=== PATIENT | male | born 1965 | race Caucasian/White ===

== ENCOUNTER 2023-03-28 13:25 | Observation (INO) | payer MEDICAID, SELFPAY ==
[2023-03-28] VITALS (26 sets, daily range): BP systolic 126–178; BP diastolic 85–116; PULSE 65–71; RESP 16–24; TEMP 36.6–37.2; O2SAT 95–100; BMI 23.7; BMI 28.5
--- NOTE | 2023-03-28 13:33 | CT_ITS ---
The [address] [address] Patient Name: CHARLES ROBERSON MRN: [id number] date: 1965 Sex: M Assigned Patient Location: ER Current Patient Location: Accession/Order Number: [id number] Exam Date: 03/28/2023 15:02 Report Date: 03/28/2023 15:35 At the request of: ALFREDA ELLISON Procedure: CT cervical spine wo con TITLE: CT head/brain wo con, CT cervical spine wo con COMPARISON: None. CLINICAL HISTORY: Fall. Headache. Dizziness TECHNIQUE: 3 mm axial images were obtained of the brain and cervical spine without contrast. Multiplanar reconstructions created Automated exposure control was utilized. Dose reduction techniques were achieved by using automated exposure control and/or adjustment of mA and/or kV according to patient size and/or use of iterative reconstruction technique. FINDINGS: Head CT: There is no mass, mass effect, parenchymal hemorrhage, nor subarachnoid hemorrhage. Small hypodensity in the basal ganglia likely remote lacunar infarcts. The extra-axial and extracranial structures appear normal. There is no hydrocephalus. The skeletal structures are intact.. Cervical spine CT: Osteopenia. Dextroconvexity. No listhesis nor vertebral body height loss. Anterior fusion operative changes C4-C6. Anterior plate, vertebral body screw, and interbody fusion material No displaced fracture. Posterior osteophyte and disc formation with uncovertebral hypertrophy results in moderate central stenoses C3-4-C6-7. 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 NO ACUTE INTRACRANIAL FINDINGS BY HEAD CT WITHOUT CONTRAST. PREVIOUS ANTERIOR FUSION OPERATIVE CHANGES C4-C6 MODERATE DEGENERATIVE CHANGE WITHOUT ACUTE CT FINDINGS Electronically authenticated by: KHURRAM CARRASCO Date: 03/28/2023 15:35
--- NOTE | 2023-03-28 13:33 | CT_ITS ---
The [address] [address] Patient Name: CHARLES ROBERSON MRN: [id number] date: 1965 Sex: M Assigned Patient Location: ER Current Patient Location: Accession/Order Number: [id number] Exam Date: 03/28/2023 15:02 Report Date: 03/28/2023 15:35 At the request of: ALFREDA ELLISON Procedure: CT head/brain wo con TITLE: CT head/brain wo con, CT cervical spine wo con COMPARISON: None. CLINICAL HISTORY: Fall. Headache. Dizziness TECHNIQUE: 3 mm axial images were obtained of the brain and cervical spine without contrast. Multiplanar reconstructions created Automated exposure control was utilized. Dose reduction techniques were achieved by using automated exposure control and/or adjustment of mA and/or kV according to patient size and/or use of iterative reconstruction technique. FINDINGS: Head CT: There is no mass, mass effect, parenchymal hemorrhage, nor subarachnoid hemorrhage. Small hypodensity in the basal ganglia likely remote lacunar infarcts. The extra-axial and extracranial structures appear normal. There is no hydrocephalus. The skeletal structures are intact.. Cervical spine CT: Osteopenia. Dextroconvexity. No listhesis nor vertebral body height loss. Anterior fusion operative changes C4-C6. Anterior plate, vertebral body screw, and interbody fusion material No displaced fracture. Posterior osteophyte and disc formation with uncovertebral hypertrophy results in moderate central stenoses C3-4-C6-7. 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 NO ACUTE INTRACRANIAL FINDINGS BY HEAD CT WITHOUT CONTRAST. PREVIOUS ANTERIOR FUSION OPERATIVE CHANGES C4-C6 MODERATE DEGENERATIVE CHANGE WITHOUT ACUTE CT FINDINGS Electronically authenticated by: KHURRAM CARRASCO Date: 03/28/2023 15:35
--- NOTE | 2023-03-28 13:35 | XR_ITS ---
The [address] [address] Patient Name: CHARLES ROBERSON MRN: [id number] date: 1965 Sex: M Assigned Patient Location: ER Current Patient Location: ER Accession/Order Number: [id number] Exam Date: 03/28/2023 15:08 Report Date: 03/28/2023 15:31 At the request of: ALFREDA ELLISON Procedure: XR chest 1V PROCEDURE: XR chest 1V DATE: 03/28/2023 2:08 PM CDT COMPARISONS: 10/30/2022 CLINICAL INDICATION: 57 years Male s/p fall FINDINGS: The heart is slightly prominent and stable. Poststernotomy changes again identified. A loop recorder is again identified. The lungs are clear. There is no evidence of pleural effusion or pneumothorax. XR/XR chest 1V IMPRESSION: Stable poststernotomy chest. Electronically authenticated by: RAJ SHIPMAN Date: 03/28/2023 15:31
--- NOTE | 2023-03-28 13:37 | ED.GENADUL1 ---
HPI - General Adult General Chief complaint: Headache Stated complaint: HEAD/NECK PAIN Time Seen by Provider: 03/28/23 13:32 Source: patient Source information: EMS History of Present Illness HPI narrative: patient is a 57-year-old male, presents to Emergency Room via EMS for evaluation of severe neck and head pain. ( pt is on plavix, but states he didn't hit his head. ) Patient states she has a history of migraine headaches and prior history of cervical neck fusion. Patient states yesterday he was walking down his steps around 1 PM and slipped landing on his buttock but jerked his head backwards. Patient states he felt a pop in his neeck. Symptoms have been gradually ramping uup. Intermittent numbness and tingling in the upper extremities. He denies any chest pain or shortness of breath. Patient notes current head pain is 9/10 feels like my eyeballs are getting pushed out of my head. Patient notes severe pain radiating from his neck to the posterior scalp. Similar symptoms to previous migrainous episodes but intensity is much worse than prior episodes. Patient has a c-collar on the EMS. patient has notable light and noise sensitivity. Onset (ago): day(s) (1) Location: Reports head and neck Quality: Denies burning Pain Consistency: Denies constant Relieving factors: Denies none Exacerbating factors: Denies none Treatments prior to arrival: Reports none Related Data Home Medications Medication Instructions Recorded Confirmed albuterol sulfate 90 mcg/actuation 2 puff inhalation Q6H PRN 03/28/23 03/28/23 aerosol inhaler (Ventolin HFA) shortness of breath or wheezing amitriptyline 50 mg tablet 50 mg PO DAILY 03/28/23 03/28/23 aspirin 81 mg tablet,delayed 81 mg PO DAILY 03/28/23 03/28/23 release atorvastatin 80 mg tablet 80 mg PO DAILY 03/28/23 03/28/23 baclofen 10 mg tablet 10 mg PO DAILY 03/28/23 03/28/23 clopidogrel 75 mg tablet 75 mg PO DAILY 03/28/23 03/28/23 metoprolol succinate 50 mg 50 mg PO DAILY 03/28/23 03/28/23 tablet,extended release 24 hr sacubitril 24 mg-valsartan 26 mg 1 tab PO DAILY 03/28/23 03/28/23 tablet (Entresto) Allergies Allergy/AdvReac Type Severity Reaction Status Date / Time nka Allergy Mild Uncoded 03/28/23 18:16 Review of Systems ROS Constitutional Denies: fever or chills Eyes Denies: change in vision Ears, nose, mouth, and throat Denies: throat pain or neck pain Cardiovascular Denies: chest pain or palpitations Respiratory Denies: shortness of breath or cough Gastrointestinal Reports: nausea; Denies: abdominal pain Musculoskeletal Reports: neck pain; Denies: back pain Integumentary/Breast Denies: rash or itching Neurological Reports: headache and numbness in extremities (upper extremities intermittently numb and tingly, no focal distribution) Psychiatric Denies: anxiety Endocrine Denies: excessive urination Hematologic/Lymphatic Denies: easy bruising Allergic/Immunologic Denies: hives [facility] Medical History (Updated 03/28/23 @ 17:02 by Deena Wise) Surgical History (Updated 03/28/23 @ 17:02 by Deena Wise) Social History (Updated 03/28/23 @ 17:05 by Deena Wise) Smoking status: Current every day smoker Non-prescribed substance use: former substance user Non-prescribed substance use details: cocaine, meth Previous occupational history: [employer] Known occupational exposures/hazards: No Highest level of school completed/degree received: GED or equivalent Little interest or pleasure in doing things: not at all Feeling down, depressed, or hopeless: not at all Feel stressed/tense/nervous/anxious/difficulty sleeping: only a little Do you think of yourself as: straight/heterosexual Gender Identity: male Exam Narrative Exam Narrative: Nurses notes and vital signs reviewed and patient is not hypoxic. General: The patient appears uncomfortable, grimacing with pain. Covering his eyes from the light.sitting up and conversing without difficulty. Skin: Warm, dry, no pallor noted.no evidence of rash Head: Normocephalic, atraumatic Neck:positive spasm cervical spine, remote surgical scar, c-collar left in place Eye: Pupils are equal, round and reactive to light, EOMI Ears, Nose, Mouth, and Throat: TM are clear, normal light reflex, oral mucosa is moist, no posterior oropharynx erythema or hypertrophy, uvula is mid-line Cardiovascular: Regular Rate and Rhythm Respiratory: Patient is in no distress, no accessory muscle use, lungs are clear to auscultation, no wheezing, rales or rhonchi. 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 No focal deficit. Patient notes intermittent paresthesias bilateral upper extremity but no focal radicular pattern specified. GI: Normal bowel sounds, no tenderness to palpation, no masses appreciated. No rebound, guarding, or rigidity noted. Neurological: A&O x4, as of confusion, no focal neurological radiculopathy. Psychiatric: Cooperative Constitutional Vital Signs, click to edit/add: Last Vital Signs Temp 98 F 03/28/23 17:06 Pulse 71 03/28/23 17:06 Resp 16 03/28/23 17:06 BP 134/95 H 03/28/23 17:06 Pulse Ox 95 03/28/23 17:06 O2 Del Method Room Air 03/28/23 17:06 O2 Flow Rate 15 03/28/23 15:39 Course Vital Signs Vital signs: Vital Signs Temperature 98.6 F 03/28/23 13:33 Respiratory Rate 24 03/28/23 13:33 Blood Pressure 129/99 H 03/28/23 13:33 Pulse Oximetry 100 03/28/23 13:33 Temperature 98 F 03/28/23 17:06 Pulse Rate 71 03/28/23 17:06 Respiratory Rate 16 03/28/23 17:06 Blood Pressure 134/95 H 03/28/23 17:06 Pulse Oximetry 95 03/28/23 17:06 Oxygen Delivery Method Room Air 03/28/23 17:06 Oxygen Delivery Flow Rate 15 03/28/23 15:39 Medical Decision Making MDM Narrative Medical decision making narrative: patient presents with severe headache, 9/10 and neck pain, concerned with feeling a pop in his neck after falling on basement steps. Patient is on Plavix. Recommend CT of the head and neck. Patient left in c-collar, given morphine, Norflex, 40 mg IV Solu-Medrol. Patient reports pain to right occipital side of his scalp radiating from the neck up over his head, worse than previous migraines. Upon returning from the CT scan patient was reevaluated. Given 5 mg IV Valium, Benadryl 5 mg and Reglan. 10 mg. patient also placed on bedside oxygen 15 L/m. Patient notes improvement in pain doown to a 7/10. Cervical spine brace was removed following stabe CT report: Pt given Magnesium 2g IV over 20 mins. to reports migraine still present, we discussed his history, case reviewed with Dr. melendrez regarding presentation, symptoms and studies. He is agreeable to admit the patient for observation given intractable migraine. @4:30pm Lab Data Lab results reviewed: Yes I reviewed the patient's lab results Labs: Lab Results 03/28/23 Range/Units 14:02 WBC 7.6 (4.0-11.0) 10^3/uL RBC 4.65 L (4.70-6.10) 10^6/uL Hgb 15.4 (14.0-18.0) g/dL Hct 44.9 (42.0-54.0) % MCV 96.6 H (80.0-94.0) fL MCH 33.1 (25.9-34.0) pg MCHC 34.3 (29.9-35.2) g/dL RDW 13.0 (11.0-15.0) % Plt Count 161 (150-450) 10^3/uL MPV 9.4 L (9.5-13.5) fL Neut % (Auto) 76.9 H (43.0-75.0) % Lymph % (Auto) 15.9 L (20.5-60.0) % Jessamine % (Auto) 5.8 (1.7-12.0) % Eos % (Auto) 0.7 L (0.9-7.0) % Baso % (Auto) 0.4 (0.2-2.0) % Neut # (Auto) 5.9 (1.4-6.5) 10^3/uL Lymph # (Auto) 1.2 (1.2-3.8) 10^3/uL Jessamine # (Auto) 0.4 (0.3-0.8) 10^3/uL Eos # (Auto) 0.1 (0.0-0.7) 10^3/uL Baso # (Auto) 0.0 (0.0-0.1) 10^3/uL Abs Immat Gran (auto) 0.02 (0.00-0.03) 10^3/uL Imm/Tot Granulo (auto) 0.3 (0.0-0.5) % ESR 17 (<=20) mm/hr PT 10.7 (9.0-11.6) sec INR 1.01 APTT 26.7 (22.3-36.2) sec Sodium 136 (136-145) mmol/L Potassium 3.7 (3.5-5.1) mmol/L Chloride 100 (98-107) mmol/L Carbon Dioxide 23.7 (21.0-32.0) mmol/L Anion Gap 16.0 BUN 7.0 (7.0-18.0) mg/dL Creatinine 1.24 (0.70-1.30) mg/dL Est GFR ( Amer) >60 (>=60) Est GFR (Non-Af Amer) 60 (>=60) BUN/Creatinine Ratio 5.6 Glucose 131 H (74-106) mg/dL Calcium 9.4 (8.5-10.1) mg/dL Imaging Data CT scan - head: Radiologist's impression: At the request of: ALFREDA ELLISON Procedure: CT head/brain wo con TITLE: CT head/brain wo con, CT cervical spine wo con COMPARISON: None. CLINICAL HISTORY: Fall. Headache. Dizziness TECHNIQUE: 3 mm axial images were obtained of the brain and cervical spine without contrast. Multiplanar reconstructions created Automated exposure control was utilized. Dose reduction techniques were achieved by using automated exposure control and/or adjustment of mA and/or kV according to patient size and/or use of iterative reconstruction technique. FINDINGS: Head CT: There is no mass, mass effect, parenchymal hemorrhage, nor subarachnoid hemorrhage. Small hypodensity in the basal ganglia likely remote lacunar infarcts. The extra-axial and extracranial structures appear normal. There is no hydrocephalus. The skeletal structures are intact.. Cervical spine CT: Osteopenia. Dextroconvexity. No listhesis nor vertebral body height loss. Anterior fusion operative changes C4-C6. Anterior plate, vertebral body screw, and interbody fusion material No displaced fracture. Posterior osteophyte and disc formation with uncovertebral hypertrophy results in moderate central stenoses C3-4-C6-7. 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 NO ACUTE INTRACRANIAL FINDINGS BY HEAD CT WITHOUT CONTRAST. PREVIOUS ANTERIOR FUSION OPERATIVE CHANGES C4-C6 MODERATE DEGENERATIVE CHANGE WITHOUT ACUTE CT FINDINGS Electronically authenticated by: KHURRAM CARRASCO Date: 03/28/2023 15:35 Discharge Plan Discharge Chief Complaint: Headache Clinical Impression: Acute neck pain, Migraine Patient Disposition: Admitted as Observation Time of Disposition Decision: 16:29 Condition: Good Discharge Date/Time: 03/28/23 17:05
[2023-03-28] MEDS: ORPHENADRINE 60 MG/ 2 ML VIAL IV (13:50)
[2023-03-28] MEDS: 0.9 % SODIUM CHLORIDE 1,000 ML 999 ML IV (13:50)
[2023-03-28] MEDS: MORPHINE SULFATE 4 MG/ML VIAL IV (13:51)
[2023-03-28] MEDS: ONDANSETRON PF 4 MG/2 ML VIAL IV (13:51)
[2023-03-28] MEDS: METHYLPREDNISOLONE SOD SUCC PF 40 MG/ML VIAL IVP (13:54)
[2023-03-28 14:09] LABS: Basophils Percent Auto 0.4 % (0.2-2.0); Eosinophils Absolute Auto 0.1 10^3/uL (0.0-0.7); Eosinophils Percent Auto 0.7 % (0.9-7.0); Hematocrit 44.9 % (42.0-54.0); Hemoglobin 15.4 g/dL (14.0-18.0); Immature Granulocytes Abs Auto 0.02 10^3/uL (0.00-0.03); Immature Granulocytes Pct Auto 0.3 % (0.0-0.5); Lymphocytes Absolute Auto 1.2 10^3/uL (1.2-3.8); Lymphocytes Percent Auto 15.9 % (20.5-60.0); Mean Corpuscular HGB Conc 34.3 g/dL (29.9-35.2); Mean Corpuscular Hemoglobin 33.1 pg (25.9-34.0); Mean Corpuscular Volume 96.6 fL (80.0-94.0); Mean Platelet Volume 9.4 fL (9.5-13.5); Monocytes Absolute Auto 0.4 10^3/uL (0.3-0.8); Monocytes Percent Auto 5.8 % (1.7-12.0); Neutrophils Absolute Auto 5.9 10^3/uL (1.4-6.5); Neutrophils Percent Auto 76.9 % (43.0-75.0); Platelet Count 161 10^3/uL (150-450); Red Blood Count 4.65 10^6/uL (4.70-6.10); White Blood Count 7.6 10^3/uL (4.0-11.0)
[2023-03-28 14:20] LABS: BUN Creatinine Ratio 5.6; Calcium 9.4 mg/dL (8.5-10.1); Carbon Dioxide 23.7 mmol/L (21.0-32.0); Chloride 100 mmol/L (98-107); Estimated GFR (African America >60 (>=60); Estimated GFR (Non-African Ame 60 (>=60); Glucose 131 mg/dL (74-106); Potassium 3.7 mmol/L (3.5-5.1); Sodium 136 mmol/L (136-145)
[2023-03-28 14:33] LABS: INR 1.01; Partial Thromboplastin Time 26.7 sec (22.3-36.2); Prothrombin Time 10.7 sec (9.0-11.6)
[2023-03-28] MEDS: METOCLOPRAMIDE HCL 10 MG/2 ML VIAL IVP (15:29)
[2023-03-28] MEDS: DIPHENHYDRAMINE HCL 50 MG/ML (1ML) VIAL 25 MG IV (15:29)
[2023-03-28] MEDS: DIAZEPAM 5 MG/ML - 2 ML INJ SYRINGE IV (15:30)
--- NOTE | 2023-03-28 15:42 | PC.NURSE ---
1542 RECHECK MANUAL BP MONITOR INCORRECT AT 178/116. RECHECK MANUAL 148/86. Cristino HICKMAN RN
[2023-03-28] MEDS: KETOROLAC TROMETHAMINE 30 MG/ML VIAL IVP (16:01)
[2023-03-28] MEDS: MAGNESIUM SULFATE/D5W 1 GM/100 ML PIGGYBACK IV (16:27)
[2023-03-28 16:31] LABS: Erythrocyte Sedimentation Rate 17 mm/hr (<=20)
[2023-03-28] MEDS: IBUPROFEN 400 MG TABLET 800 MG PO (18:07)
[2023-03-28] MEDS: SUMATRIPTAN SUCCINATE 50 MG TABLET PO (22:24)
[2023-03-29] MEDS: MORPHINE SULFATE 2 MG/ML SYRINGE 1 MG IV (01:49)
[2023-03-29] MEDS: ENOXAPARIN SODIUM 40 MG/0.4 ML SYRINGE SUBQ ×2 (01:49→09:04)
[2023-03-29] MEDS: SUMATRIPTAN SUCCINATE 50 MG TABLET PO (01:50)
[2023-03-29 02:39] VITALS: BP 135/77; PULSE 72; RESP 16; TEMP 36.6; O2SAT 97
[2023-03-29 03:48] VITALS: O2SAT 94
[2023-03-29 04:00] VITALS: RESP 16
[2023-03-29] MEDS: ACETAMINOPHEN 325 MG TABLET 650 MG PO ×2 (04:18→10:17)
[2023-03-29] MEDS: DIPHENHYDRAMINE HCL 25 MG CAPSULE PO (04:19)
[2023-03-29 04:34] VITALS: BP 152/94; PULSE 59; RESP 16; O2SAT 95
[2023-03-29] MEDS: BACLOFEN 10 MG TABLET PO (05:43)
[2023-03-29] MEDS: MORPHINE SULFATE 2 MG/ML SYRINGE IV ×2 (05:44→11:16)
[2023-03-29 07:55] VITALS: TEMP 36.4
[2023-03-29] MEDS: CLOPIDOGREL BISULFATE 75 MG TABLET PO (09:03)
[2023-03-29] MEDS: ASPIRIN 81 MG TABLET.DR PO (09:03)
[2023-03-29] MEDS: METOPROLOL SUCCINATE 50 MG TAB.ER.24H PO (09:03)
[2023-03-29] MEDS: SACUBITRIL/VALSARTAN 24 MG-26 MG TABLET 1 TAB PO (09:03)
[2023-03-29] MEDS: ATORVASTATIN CALCIUM 40 MG TABLET 80 MG PO (09:03)
[2023-03-29] MEDS: AMITRIPTYLINE HCL 50 MG TABLET PO (09:03)
[2023-03-29 09:44] VITALS: O2SAT 95
--- NOTE | 2023-03-29 10:25 | CM.NOTE ---
Rounds made with gerardo King for discharge to home. Pt to f/u with primary care doctor next week. No other discharge needs identified.
--- NOTE | 2023-03-29 10:54 | P.HP_ITS ---
H&P: HPI History of Present Illness Chief complaint: Intractable head and neck pain Narrative: HPI and hospital course: 57 y o male with hx of chronic neck pain s/p surgery and intermittent migraine MCDONALD - usually treatable with OTC analgesics p/w with persistent, intractable neck pain radiating upward to his occipital region after sustaining a mechanical fall which resulted in sudden neck extension. He was evaluated in ED and had head CT/neck with no acute/sig abnormality noted on imaging and was treated with multiple IV medications in ED with no relief in his symptoms so he was admitted for observation for intractable head and neck pain. Patient reports feeling better today and his pain is 6/10. He has no active complaints to offer otherwise and medically stable for d/c Admission Diagnosis Cervicogenic headache Acute on chronic neck pain Migraine MCDONADL. CAD PVD Chronic pancreatitis HLD Discharge Diagnosis as above Discharge status stable Review of Systems ROS Status of ROS 10 or more systems reviewed and unremarkable except as noted in history and below [facility] Medical History (Updated 03/29/23 @ 11:01 by Shaikh Jessika MD) Surgical History (Updated 03/29/23 @ 11:01 by Shaikh Jessika MD) Social History (Updated 03/28/23 @ 17:05 by Deena Wise) Smoking status: Current every day smoker Non-prescribed substance use: former substance user Non-prescribed substance use details: cocaine, meth Previous occupational history: [employer] Known occupational exposures/hazards: No Highest level of school completed/degree received: GED or equivalent Little interest or pleasure in doing things: not at all Feeling down, depressed, or hopeless: not at all Feel stressed/tense/nervous/anxious/difficulty sleeping: only a little Do you think of yourself as: straight/heterosexual Gender Identity: male Meds Home Medications and Allergies Home Medications Medication Instructions Recorded Confirmed Type albuterol sulfate 90 mcg/actuation 2 puff inhalation Q6H PRN 03/28/23 03/28/23 History aerosol inhaler (Ventolin HFA) shortness of breath or wheezing amitriptyline 50 mg tablet 50 mg PO DAILY 03/28/23 03/28/23 History aspirin 81 mg tablet,delayed 81 mg PO DAILY 03/28/23 03/28/23 History release atorvastatin 80 mg tablet 80 mg PO DAILY 03/28/23 03/28/23 History baclofen 10 mg tablet 10 mg PO DAILY 03/28/23 03/28/23 History clopidogrel 75 mg tablet 75 mg PO DAILY 03/28/23 03/28/23 History metoprolol succinate 50 mg 50 mg PO DAILY 03/28/23 03/28/23 History tablet,extended release 24 hr sacubitril 24 mg-valsartan 26 mg 1 tab PO DAILY 03/28/23 03/28/23 History tablet (Entresto) Allergies Allergy/AdvReac Type Severity Reaction Status Date / Time nka Allergy Mild Uncoded 03/28/23 18:16 Exam Constitutional Vital Signs, click to edit/add: Last Vital Signs Temp 97.5 F L 03/29/23 07:55 Pulse 59 L 03/29/23 04:34 Resp 16 03/29/23 04:34 BP 152/94 H 03/29/23 04:34 Pulse Ox 95 03/29/23 09:44 O2 Del Method Room Air 03/29/23 09:44 O2 Flow Rate 15 03/28/23 15:39 Documenting provider has reviewed patient's vital signs: yes Common normals: no apparent distress and oriented x3 HENMT Common normals: normocephalic and head/scalp atraumatic Head and scalp: normocephalic and atraumatic Eye Common normals: conjunctivae normal and no scleral icterus Conjunctiva: conjunctiva(e) normal Respiratory Common normals: normal respiratory effort and clear to auscultation bilaterally Auscultation: clear to auscultation bilaterally Cardio Common normals: regular rate, regular rhythm, S1 normal heart sound and S2 normal heart sound Rate: regular rate Rhythm: regular rhythm Heart sounds: S1 normal and S2 normal GI Common normals: soft to palpation, non-tender and no hepatosplenomegaly Inspection: visible herniation (midline incisional hernia) Palpation: soft and no hepatosplenomegaly Extremity Common normals: no clubbing, cyanosis or edema Neuro Common normals: oriented x3, moves all extremities, no focal motor deficits and no sensory deficits noted Psych Psychiatry clinicians, please identify where your Mental Status Exam is documented: Mental Status Exam documented in the separate MSE Common normals: mental status grossly normal, thought process normal, denies hallucinations, denies homicidal ideation and denies suicidal ideation Thought process: normal thought process Results Labs Labs: Short CBC 03/28/23 Range/Units 14:02 WBC 7.6 (4.0-11.0) 10^3/uL Hgb 15.4 (14.0-18.0) g/dL Hct 44.9 (42.0-54.0) % Plt Count 161 (150-450) 10^3/uL BMP 03/28/23 14:02 Sodium 136 Potassium 3.7 Chloride 100 Carbon Dioxide 23.7 BUN 7.0 Creatinine 1.24 Glucose 131 H Calcium 9.4 Assessment and Plan Assessment and Plan (1) Cervicogenic headache: Assessment and Plan: Chronic neck pain and intermittent migraine MCDONALD. Acutely exacerbated due to fall and neck extension resulting in intractable pain that failed to respond to multiple IV medications and hence patient was admitted overnight for pain control. Will need outpatient f/u for his chronic neck pain and migraine MCDONALD. (2) Neck pain with history of cervical spinal surgery: Assessment and Plan: Chronic neck pain - acutely worsened due to fall. Better now. No neurological signs and symptoms except for intermittent numbness b/l UE. Outpatient f/u and possibly an MRI. (3) Migraine: Assessment and Plan: Intermittent migraine - 3-4 episodes per month. Usually respond to OTC NSAIDS. (4) CAD (coronary artery disease): Assessment and Plan: s/p CABG. No active cardiac ischemia. Denies CP, SOB, stable. Outpatient f/u with Cardiology. (5) HLD (hyperlipidemia): Assessment and Plan: C/w statin (6) PVD (peripheral vascular disease): Assessment and Plan: s/p right fem-pop bypass. On ASA, statin. Outpatient f/u. stable. Plan Head and neck pain reasonably controlled. Stable for d/c. Patient to f/u with PCP in one week,.
== END 2023-03-29 12:22 | disposition home or self-care (01) ==
LOC: ER 16:29 → ICU 16:55
PROVIDERS: Personal Emergency Response Attendant; Admitting Provider Internal Medicine; Emergency Provider Emergency Medicine; PCP Internal Medicine; Visit Provider Internal Medicine
DX: G44.86 Cervicogenic headache (principal); G43.909 Migraine, unspecified, not intractable, without status migrainosus; I25.10 Atherosclerotic heart disease of native coronary artery without angina pectoris; I73.9 Peripheral vascular disease, unspecified; K86.1 Other chronic pancreatitis; E78.5 Hyperlipidemia, unspecified; F17.210 Nicotine dependence, cigarettes, uncomplicated; Z79.82 Long term (current) use of aspirin; Z79.899 Other long term (current) drug therapy; Z95.1 Presence of aortocoronary bypass graft; Z79.02 Long term (current) use of antithrombotics/antiplatelets; Z91.81 History of falling
CPT/HCPCS: 36415; 70450; 71045; 72125; 80048; 85025; 85610; 85652; 85730; 94761; 96365; 96372; 96375; 96376; 99285; G0378; J2920

== ENCOUNTER 2023-05-21 00:53 | Inpatient (IN) | payer MEDICAID, SELFPAY ==
[2023-05-21] VITALS (25 sets, daily range): BP systolic 151–195; BP diastolic 75–104; PULSE 51–71; RESP 12–18; TEMP 36.6–37.1; O2SAT 80–99; BMI 23.7; BMI 25.6
--- NOTE | 2023-05-21 01:18 | ED.ABDPAIN1 ---
HPI - Abdominal Pain General Chief Complaint: Abdominal Pain Stated Complaint: ABD PAIN Time Seen by Provider: 05/21/23 01:02 Source: patient Mode of arrival: ambulance Limitations: no limitations History of Present Illness HPI narrative: RUQ abd pain started about 28 hours ago after the patient drank moonshine. Nausea and dy heaving - unable to eat or drink due to the the pain and nausea. No constipation or diarrhea. No flank pain. Pain does not radiate or migrate. No urinary symptoms. Prior diagnosis of pancreatitis. Related Data Home Medications Medication Instructions Recorded Confirmed albuterol sulfate 90 mcg/actuation 2 puff inhalation Q6H PRN 03/28/23 03/28/23 aerosol inhaler (Ventolin HFA) shortness of breath or wheezing amitriptyline 50 mg tablet 50 mg PO DAILY 03/28/23 05/21/23 aspirin 81 mg tablet,delayed 81 mg PO DAILY 03/28/23 05/21/23 release atorvastatin 80 mg tablet 80 mg PO DAILY 03/28/23 05/21/23 clopidogrel 75 mg tablet 75 mg PO DAILY 03/28/23 05/21/23 metoprolol succinate 50 mg 50 mg PO DAILY 03/28/23 05/21/23 tablet,extended release 24 hr sacubitril 24 mg-valsartan 26 mg 1 tab PO DAILY 03/28/23 05/21/23 tablet (Entresto) magnesium oxide 400 mg (241.3 mg mg 05/21/23 magnesium) tablet spironolactone 25 mg tablet 25 mg PO DAILY 05/21/23 05/21/23 Allergies Allergy/AdvReac Type Severity Reaction Status Date / Time No Known Drug Allergies Allergy Verified 05/21/23 01:16 [facility] Medical History (Updated 05/21/23 @ 03:08 by Nacho Burr) Acute neck pain ?M54.2 - Cervicalgia (ICD-10) CAD (coronary artery disease) ?I25.10 - Atherosclerotic heart disease of [place] coronary artery without angina pectoris (ICD-10) Chronic pancreatitis ?K86.1 - Other chronic pancreatitis (ICD-10) FH: CABG (coronary artery bypass surgery) ?Z82.49 - Family history of ischemic heart disease and other diseases of the circulatory system (ICD-10) HLD (hyperlipidemia) ?E78.5 - Hyperlipidemia, unspecified (ICD-10) Migraine ?G43.909 - Migraine, unspecified, not intractable, without status migrainosus (ICD-10) Myocardial infarction ?I21.9 - Acute myocardial infarction, unspecified (ICD-10) Pancreatitis, acute ?K85.90 - Acute pancreatitis without necrosis or infection, unspecified (ICD-10) Poor high blood pressure control ?I10 - Essential (primary) hypertension (ICD-10) PVD (peripheral vascular disease) ?I73.9 - Peripheral vascular disease, unspecified (ICD-10) Surgical History (Updated 03/29/23 @ 11:01 by Shaikh Jessika MD) H/O two vessel coronary artery bypass graft ?Z95.1 - Presence of aortocoronary bypass graft (ICD-10) History of hernia repair ?Z98.890 - Other specified postprocedural states (ICD-10) ?Z87.19 - Personal history of other diseases of the digestive system (ICD-10) History of tonsillectomy ?Z90.89 - Acquired absence of other organs (ICD-10) S/P femoral-popliteal bypass surgery ?Z95.828 - Presence of other vascular implants and grafts (ICD-10) Social History (Updated 03/28/23 @ 17:05 by Deena Wise) Smoking status: Current every day smoker Non-prescribed substance use: former substance user Non-prescribed substance use details: cocaine, meth Previous occupational history: [employer] Known occupational exposures/hazards: No Highest level of school completed/degree received: GED or equivalent Little interest or pleasure in doing things: not at all Feeling down, depressed, or hopeless: not at all Feel stressed/tense/nervous/anxious/difficulty sleeping: only a little Do you think of yourself as: straight/heterosexual Gender Identity: male Exam Narrative Exam Narrative: Nurses notes and vital signs reviewed and patient is not hypoxic. afebrile General: Uncomfortable. Skin: Warm, dry, no pallor noted. No rash to abdomen or flank. Eye: Pupils are equal, round and EOMI. No scleral icterus. Ears, Nose, Mouth, and Throat: Oral mucosa is dry Cardiovascular: Regular Rate and Rhythm without murmur, gallop or rub. Respiratory: No accessory muscle use or respiratory distress. Lungs are clear to auscultation, no wheezing, rales or rhonchi Back: No CVA tenderness Musculoskeletal: normal ROM GI: Abdomen is soft, non-distended. Normal bowel sounds. No masses appreciated. RUQ tenderness to palpation. No rebound, guarding, or rigidity noted. Neurological: A&O x4. No cranial nerve dysfunction observed. No truncal ataxia. Moves all extremities. Sensation intact. Psychiatric: Cooperative and interactive. Normal mood and affect. Constitutional Vital Signs, click to edit/add: Last Vital Signs Temp 98.1 F 05/21/23 00:55 Pulse 59 L 05/21/23 00:55 Resp 18 05/21/23 00:55 BP 158/83 H 05/21/23 02:53 Pulse Ox 99 05/21/23 00:55 O2 Del Method Room Air 05/21/23 00:55 Course Vital Signs Vital signs: Vital Signs Temperature 98.1 F 05/21/23 00:55 Pulse Rate 59 L 05/21/23 00:55 Respiratory Rate 18 05/21/23 00:55 Blood Pressure 151/100 H 05/21/23 00:55 Pulse Oximetry 99 05/21/23 00:55 Oxygen Delivery Method Room Air 05/21/23 00:55 Temperature 98.1 F 05/21/23 00:55 Pulse Rate 59 L 05/21/23 00:55 Respiratory Rate 18 05/21/23 00:55 Blood Pressure 158/83 H 05/21/23 02:53 Pulse Oximetry 99 05/21/23 00:55 Oxygen Delivery Method Room Air 05/21/23 00:55 MDM - Abdominal Pain MDM Narrative Medical decision making narrative: CBC with normal WBC. Unremarkable CMP. Lipase barely elevated at 100. CT shows some inflammatory changes suggesting pancreatitis. Patient received IV Zofran, IV Protonix and two doses of IV Dilaudid for his pain. He and I discussed test results. Despite only mild pancreatic changes on CT and Lipase barely elevated above the upper limits or normal, the patient continues to complain of moderate to severe abdominal pain. Case discussed with the telehospitalist, Dr Brunner, who agreed to admit the patient on an observation basis, [facility]. His PCP is Lawrence Melendrez, who can see him later this morning as the day hospitalist. Lab Data Attestation: I reviewed the patient's lab results. Labs: Lab Results 11/10/23 Range/Units 01:05 WBC 8.5 (4.0-11.0) 10^3/uL RBC 4.38 L (4.70-6.10) 10^6/uL Hgb 14.9 (14.0-18.0) g/dL Hct 42.9 (42.0-54.0) % MCV 97.9 H (80.0-94.0) fL MCH 34.0 (25.9-34.0) pg MCHC 34.7 (29.9-35.2) g/dL RDW 14.0 (11.0-15.0) % Plt Count 183 (150-450) 10^3/uL MPV 9.5 (9.5-13.5) fL Neut % (Auto) 77.2 H (43.0-75.0) % Lymph % (Auto) 15.5 L (20.5-60.0) % [place] % (Auto) 6.2 (1.7-12.0) % Eos % (Auto) 0.2 L (0.9-7.0) % Baso % (Auto) 0.5 (0.2-2.0) % Neut # (Auto) 6.6 H (1.4-6.5) 10^3/uL Lymph # (Auto) 1.3 (1.2-3.8) 10^3/uL [place] # (Auto) 0.5 (0.3-0.8) 10^3/uL Eos # (Auto) 0.0 (0.0-0.7) 10^3/uL Baso # (Auto) 0.0 (0.0-0.1) 10^3/uL Abs Immat Gran (auto) 0.03 (0.00-0.03) 10^3/uL Imm/Tot Granulo (auto) 0.4 (0.0-0.5) % Sodium 135 L (136-145) mmol/L Potassium 3.6 (3.5-5.1) mmol/L Chloride 100 (98-107) mmol/L Carbon Dioxide 24.5 (21.0-32.0) mmol/L Anion Gap 14.1 BUN 8.0 (7.0-18.0) mg/dL Creatinine 1.29 (0.70-1.30) mg/dL Est GFR ( Amer) >60 (>=60) Est GFR (Non-Af Amer) 57 L (>=60) BUN/Creatinine Ratio 6.2 Glucose 132 H (74-106) mg/dL Calcium 8.7 (8.5-10.1) mg/dL Total Bilirubin 1.1 H (0.2-1.0) mg/dL AST 40 H (15-37) U/L ALT 43 (16-63) U/L Alkaline Phosphatase 114 (46-116) U/L Total Protein 7.1 (6.4-8.2) g/dL Albumin 3.7 (3.4-5.0) g/dL Globulin 3.4 g/dL Albumin/Globulin Ratio 1.1 Lipase 102.0 H (16.0-77.0) U/L Imaging Data CT scan - abdomen: Radiologist's impression: Patient Name: CHARLES ROBERSON MRN: [id number] date: 1965 Sex: M Assigned Patient Location: ER Current Patient Location: ER Accession/Order Number: [id number] Exam Date: 05/21/2023 01:46 Report Date: 05/21/2023 02:37 At the request of: NACHO BURR Procedure: CT abdomen pelvis w con EXAM: CT abdomen pelvis w con HISTORY: RUQ abd pain COMPARISON: CT abdomen and pelvis examination dated 10/30/2022. TECHNIQUE: Axial CT images through the abdomen and pelvis were obtained after the intravenous administration of 100 mL Omnipaque 300 contrast. Coronal and sagittal reformats were obtained. Dose reduction techniques were achieved by using automated exposure control and/or adjustment of mA and/or kV according to patient size and/or use of iterative reconstruction technique. FINDINGS: The visualized portions of the lung bases are clear. There is coronary artery disease. Abdomen: The liver and spleen enhance homogeneously without focal lesion. There is no intra or extrahepatic biliary duct dilatation. The gallbladder is unremarkable. There is hepatic steatosis. There is colonic diverticulosis without evidence of acute inflammation. Otherwise, the adrenal glands, kidneys, and bowel loops, including the appendix, are unremarkable. There is no mesenteric or retroperitoneal lymphadenopathy. There are mild inflammatory changes about the head and uncinate process of the pancreas. Pelvis: The bladder demonstrates mild wall thickening. The rectum is unremarkable. There is no iliac or inguinal lymphadenopathy. There is advanced atherosclerotic disease. Postsurgical changes are noted in the right inguinal region from a prior hernia repair. A stent is seen extending from the distal abdominal aorta through the proximal right common iliac artery. Again seen is occlusion of the right common iliac and right external iliac arteries with reconstitution of the right common femoral artery in the inguinal region. Bone windows show no aggressive osseous lesions. There is avascular necrosis of the femoral heads without articular surface collapse. IMPRESSION: 1. Mild inflammatory changes about the pancreatic head and uncinate process. Please correlate for acute pancreatitis. 2. Hepatic steatosis. 3. Colonic diverticulosis without evidence of acute inflammation. 4. Normal appendix. 5. Urinary bladder wall thickening. Please correlate with urinalysis for infection. 6. 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 7. 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 Electronically authenticated by: Jama GREENE Date: 05/21/2023 02:37 Discharge Plan Discharge Chief Complaint: Abdominal Pain Clinical Impression: Intractable abdominal pain, Pancreatitis Patient Disposition: Admitted as Observation Time of Disposition Decision: 02:58 Prescriptions / Home Meds: No Action albuterol sulfate [Ventolin HFA] 90 mcg/actuation HFA aerosol inhaler 2 puff INHALATION Q6H PRN (Reason: shortness of breath or wheezing) amitriptyline 50 mg tablet 50 mg PO DAILY aspirin 81 mg tablet,delayed release (DR/EC) 81 mg PO DAILY atorvastatin 80 mg tablet 80 mg PO DAILY clopidogrel 75 mg tablet 75 mg PO DAILY metoprolol succinate 50 mg tablet extended release 24 hr 50 mg PO DAILY Entresto 24-26 mg tablet 1 tab PO DAILY spironolactone 25 mg tablet 25 mg PO DAILY magnesium oxide 400 mg (241.3 mg magnesium) tablet Additional Instructions: dr melendrez, medsuvinicio, OBS Stand Alone Forms: Portal Instructions Referrals: Shaikh Melendrez MD [Primary Care Provider] - 1 week
[2023-05-21] MEDS: PANTOPRAZOLE SODIUM 40 MG VIAL IV ×2 (01:30→22:04)
[2023-05-21] MEDS: 0.9 % SODIUM CHLORIDE 1,000 ML 999 ML IV (01:30)
[2023-05-21] MEDS: ONDANSETRON PF 4 MG/2 ML VIAL IV ×3 (01:30→18:15)
[2023-05-21] MEDS: HYDROMORPHONE HCL 1 MG/ML CARTRIDGE IVP ×3 (01:31→05:27)
[2023-05-21 01:32] LABS: Basophils Percent Auto 0.5 % (0.2-2.0); Eosinophils Percent Auto 0.2 % (0.9-7.0); Hematocrit 42.9 % (42.0-54.0); Hemoglobin 14.9 g/dL (14.0-18.0); Immature Granulocytes Abs Auto 0.03 10^3/uL (0.00-0.03); Immature Granulocytes Pct Auto 0.4 % (0.0-0.5); Lymphocytes Absolute Auto 1.3 10^3/uL (1.2-3.8); Lymphocytes Percent Auto 15.5 % (20.5-60.0); Mean Corpuscular HGB Conc 34.7 g/dL (29.9-35.2); Mean Corpuscular Volume 97.9 fL (80.0-94.0); Mean Platelet Volume 9.5 fL (9.5-13.5); Monocytes Absolute Auto 0.5 10^3/uL (0.3-0.8); Monocytes Percent Auto 6.2 % (1.7-12.0); Neutrophils Absolute Auto 6.6 10^3/uL (1.4-6.5); Neutrophils Percent Auto 77.2 % (43.0-75.0); Platelet Count 183 10^3/uL (150-450); Red Blood Count 4.38 10^6/uL (4.70-6.10); White Blood Count 8.5 10^3/uL (4.0-11.0)
[2023-05-21 01:45] LABS: Alanine Aminotransferase 43 U/L (16-63); Albumin Globulin Ratio 1.1; Albumin Level 3.7 g/dL (3.4-5.0); Alkaline Phosphatase 114 U/L (46-116); Anion Gap 14.1; Aspartate Amino Transferase 40 U/L (15-37); BUN Creatinine Ratio 6.2; Bilirubin Total 1.1 mg/dL (0.2-1.0); Calcium 8.7 mg/dL (8.5-10.1); Carbon Dioxide 24.5 mmol/L (21.0-32.0); Chloride 100 mmol/L (98-107); Estimated GFR (African America >60 (>=60); Estimated GFR (Non-African Ame 57 (>=60); Globulin 3.4 g/dL; Glucose 132 mg/dL (74-106); Potassium 3.6 mmol/L (3.5-5.1); Sodium 135 mmol/L (136-145); Total Protein 7.1 g/dL (6.4-8.2)
[2023-05-21] MEDS: 0.9 % SODIUM CHLORIDE 1,000 ML 1000 ML IV (03:36)
[2023-05-21] MEDS: HYOSCYAMINE SULFATE 0.125 MG TAB.SUBL SL (03:36)
--- NOTE | 2023-05-21 04:14 | W.PM.TELEPN ---
Progress Note: Subjective Subjective Interval history: Pt is a 57M with PMH of Pancreatitis, Tobacco abuse, chronic neck pain, migraines who presented to the ED with complaint of abdominal pain, n/v. He reports drinking a large amount of moonshine prior to this episode which he thought was water. He states taht he does not drink alcohol much. Lipase was noted to be mildly elevated and CT Abdomen showed mild inflammatory changes of the pancreas. Pt was treated with multiple doses of DIlaudid without any resolution of his pain. He is recommended for observation for intractable pain, pancreatitis,. At the time of my exam, patient reports ongoing pain 7-8/10, throughout the abdomen. He continues to wretch, as recent as 1 hour ago. HE denies any fevers/chills, chest pain, shortness of breath, diarrhea. The remainder of the review of systems is negative. Exam Narrative Exam Narrative: Gen; Acute painful distress HEENT: NC/AT Neck: No JVD CV: RRR, No m/r/g Pulm: CTA B/L, No w/r/r GI: Soft. +reducible hernia noted. +RUQ tenderness. No rebound MK: MENA, no edema Neuro: AAOx3 Psych: Calm, Cooperative Constitutional Vital Signs, click to edit/add: Last Vital Signs Temp 98.1 F 05/21/23 00:55 Pulse 59 L 05/21/23 00:55 Resp 18 05/21/23 00:55 BP 166/87 H 05/21/23 03:30 Pulse Ox 98 05/21/23 03:30 O2 Del Method Room Air 05/21/23 00:55 Progress Note: Objective Labs Labs: Short CBC 05/21/23 Range/Units 01:05 WBC 8.5 (4.0-11.0) 10^3/uL Hgb 14.9 (14.0-18.0) g/dL Hct 42.9 (42.0-54.0) % Plt Count 183 (150-450) 10^3/uL BMP 05/21/23 01:05 Sodium 135 L Potassium 3.6 Chloride 100 Carbon Dioxide 24.5 BUN 8.0 Creatinine 1.29 Glucose 132 H Calcium 8.7 Liver Function 05/21/23 Range/Units 01:05 Total Bilirubin 1.1 H (0.2-1.0) mg/dL AST 40 H (15-37) U/L ALT 43 (16-63) U/L Alkaline Phosphatase 114 (46-116) U/L Albumin 3.7 (3.4-5.0) g/dL Progress Note: A&P Assessment and Plan (1) Pancreatitis: (2) Intractable abdominal pain: Plan - Place on observation - Continue Dialudid 1mg Q2hrs - Bowel regimen - NPO - Advance diet as tolerated - Serial abdominal exams - Zofran PRN - Advise alcohol abstinence - Monitor for signs of withdrawal - Place on IV NS @200cc/hr Telemedicine Attestation Telemedicine Attestation I conducted this encounter from [] via secure live, [id number] video conference with the patient, located at [facility] with []. Prior to the interview, the risks and benefits of telemedicine were discussed with the patient and verbal consent was obtained.
[2023-05-21] MEDS: 0.9 % SODIUM CHLORIDE 1,000 ML 200 ML IV (05:27)
[2023-05-21 05:39] LABS: Basophils Percent Auto 0.4 % (0.2-2.0); Eosinophils Percent Auto 0.4 % (0.9-7.0); Hematocrit 41.3 % (42.0-54.0); Hemoglobin 13.6 g/dL (14.0-18.0); Immature Granulocytes Abs Auto 0.01 10^3/uL (0.00-0.03); Immature Granulocytes Pct Auto 0.2 % (0.0-0.5); Lymphocytes Absolute Auto 0.9 10^3/uL (1.2-3.8); Lymphocytes Percent Auto 16.3 % (20.5-60.0); Mean Corpuscular HGB Conc 32.9 g/dL (29.9-35.2); Mean Corpuscular Hemoglobin 33.5 pg (25.9-34.0); Mean Corpuscular Volume 101.7 fL (80.0-94.0); Mean Platelet Volume 9.1 fL (9.5-13.5); Monocytes Absolute Auto 0.4 10^3/uL (0.3-0.8); Monocytes Percent Auto 7.5 % (1.7-12.0); Neutrophils Absolute Auto 4.3 10^3/uL (1.4-6.5); Neutrophils Percent Auto 75.2 % (43.0-75.0); Platelet Count 132 10^3/uL (150-450); Red Blood Count 4.06 10^6/uL (4.70-6.10); Red Cell Distribution Width 14.2 % (11.0-15.0); White Blood Count 5.7 10^3/uL (4.0-11.0)
[2023-05-21 05:59] LABS: Chol HDL Ratio 3.3; Cholesterol 137 mg/dL (<=200); HDL Cholesterol 42 mg/dL (40-60); LDL Cholesterol Calculated 79.4 mg/dL; Triglycerides 78 mg/dL (<=150); VLDL CHOLESTEROL 15.6 mg/dL
[2023-05-21 06:02] LABS: Alanine Aminotransferase 31 U/L (16-63); Albumin Globulin Ratio 1.1; Albumin Level 3.2 g/dL (3.4-5.0); Alkaline Phosphatase 99 U/L (46-116); Anion Gap 7.5; Aspartate Amino Transferase 29 U/L (15-37); BUN Creatinine Ratio 7.4; Calcium 7.6 mg/dL (8.5-10.1); Carbon Dioxide 29.2 mmol/L (21.0-32.0); Chloride 105 mmol/L (98-107); Estimated GFR (African America >60 (>=60); Estimated GFR (Non-African Ame >60 (>=60); Glucose 119 mg/dL (74-106); Potassium 3.7 mmol/L (3.5-5.1); Sodium 138 mmol/L (136-145); Total Protein 6.2 g/dL (6.4-8.2)
[2023-05-21] MEDS: MORPHINE SULFATE 2 MG/ML SYRINGE 4 MG IV ×3 (08:36→18:25)
[2023-05-21] MEDS: LACTATED RINGER'S SOLUTION 1,000 ML 150 ML IV (09:54)
[2023-05-21] MEDS: METOPROLOL SUCCINATE 50 MG TAB.ER.24H PO (09:55)
[2023-05-21] MEDS: AMITRIPTYLINE HCL 50 MG TABLET PO (09:55)
[2023-05-21] MEDS: CLOPIDOGREL BISULFATE 75 MG TABLET PO (09:55)
[2023-05-21] MEDS: ASPIRIN 81 MG TABLET.DR PO (09:55)
[2023-05-21] MEDS: MAGNESIUM OXIDE 400 MG TABLET PO (09:55)
--- NOTE | 2023-05-21 11:53 | CM.NOTE ---
Rounds made with Dr. Rosen. Diet advanced to Full liquid. Likely home tomorrow.
--- NOTE | 2023-05-21 12:00 | P.HP_ITS ---
H&P: HPI History of Present Illness Chief complaint: Abdominal pain Narrative: 57 y o male with prior hx of alcohol abuse, chronic pancreatitis, presents with 2 days hx of persistent abdominal pain, worse in epigasric region, associated nausea, vomiting, inability take PO diet due to nausea. Denies fever,chills, diarrhea. He mistakenly drank moonshine that his friends had brought from [place]. He came to ED last night and was in considerable pain that required multiple doses of IV narcotics. Patient's w/u revealed acute on chronic pancreatitis and was admitted overnight for supportive care, clinical monitoring, intractable abdominal pain, inability to tolerate PO diet. This morning, he reported persistent pain. He is able to tolerate liquids now. But still feels nauseous with poor appetite. His pain is slightly better from last night. Review of Systems ROS Status of ROS 10 or more systems reviewed and unremarkable except as noted in history and below [facility] Medical History (Updated 05/21/23 @ 12:12 by Shaikh Jessika MD) Acute neck pain ?M54.2 - Cervicalgia (ICD-10) CAD (coronary artery disease) ?I25.10 - Atherosclerotic heart disease of [place] coronary artery without angina pectoris (ICD-10) Chronic pancreatitis ?K86.1 - Other chronic pancreatitis (ICD-10) Chronic systolic HF (heart failure) ?I50.22 - Chronic systolic (congestive) heart failure (ICD-10) FH: CABG (coronary artery bypass surgery) ?Z82.49 - Family history of ischemic heart disease and other diseases of the circulatory system (ICD-10) HLD (hyperlipidemia) ?E78.5 - Hyperlipidemia, unspecified (ICD-10) Migraine ?G43.909 - Migraine, unspecified, not intractable, without status migrainosus (ICD-10) Myocardial infarction ?I21.9 - Acute myocardial infarction, unspecified (ICD-10) Pancreatitis, acute ?K85.90 - Acute pancreatitis without necrosis or infection, unspecified (ICD- 10) Poor high blood pressure control ?I10 - Essential (primary) hypertension (ICD-10) PVD (peripheral vascular disease) ?I73.9 - Peripheral vascular disease, unspecified (ICD-10) Surgical History (Updated 03/29/23 @ 11:01 by Shaikh Jessika MD) H/O two vessel coronary artery bypass graft ?Z95.1 - Presence of aortocoronary bypass graft (ICD-10) History of hernia repair ?Z98.890 - Other specified postprocedural states (ICD-10) ?Z87.19 - Personal history of other diseases of the digestive system (ICD-10) History of tonsillectomy ?Z90.89 - Acquired absence of other organs (ICD-10) S/P femoral-popliteal bypass surgery ?Z95.828 - Presence of other vascular implants and grafts (ICD-10) Social History (Updated 05/21/23 @ 04:33 by Ashely Vizcaino RN) Within the past year, how often did you have a drink containing alcohol: 2-3 times a week Within the past year, how many standard drinks containing alcohol did you have on a typical day: 1 or 2 Within the past year, how often did you have six or more drinks on one occasion: never Total score: 0 Score interpretation: A score less than 4 is consistent with normal alcohol consumption. Smoking status: Current every day smoker Non-prescribed substance use: former substance user Non-prescribed substance use details: cocaine, meth Previous occupational history: [employer] Known occupational exposures/hazards: No Highest level of school completed/degree received: 10th grade Little interest or pleasure in doing things: not at all Feeling down, depressed, or hopeless: not at all Feel stressed/tense/nervous/anxious/difficulty sleeping: only a little Do you think of yourself as: straight/heterosexual Gender Identity: male Meds Home Medications and Allergies Home Medications Medication Instructions Recorded Confirmed Type albuterol sulfate 90 mcg/actuation 2 puff inhalation Q6H PRN 03/28/23 05/21/23 History aerosol inhaler (Ventolin HFA) shortness of breath or wheezing amitriptyline 50 mg tablet 50 mg PO DAILY 03/28/23 05/21/23 History aspirin 81 mg tablet,delayed 81 mg PO DAILY 03/28/23 05/21/23 History release atorvastatin 80 mg tablet 80 mg PO DAILY 03/28/23 05/21/23 History clopidogrel 75 mg tablet 75 mg PO DAILY 03/28/23 05/21/23 History metoprolol succinate 50 mg 50 mg PO DAILY 03/28/23 05/21/23 History tablet,extended release 24 hr sacubitril 24 mg-valsartan 26 mg 1 tab PO BID 03/28/23 05/21/23 History tablet (Entresto) magnesium oxide 400 mg (241.3 mg 400 mg PO DAILY 05/21/23 05/21/23 History magnesium) tablet spironolactone 25 mg tablet 25 mg PO DAILY 05/21/23 05/21/23 History Allergies Allergy/AdvReac Type Severity Reaction Status Date / Time No Known Drug Allergies Allergy Verified 05/21/23 01:16 Exam Constitutional Vital Signs, click to edit/add: Last Vital Signs Temp 98.2 F 05/21/23 05:11 Pulse 51 L 05/21/23 10:15 Resp 14 05/21/23 06:00 BP 158/90 H 05/21/23 06:42 Pulse Ox 94 L 05/21/23 12:00 O2 Del Method Room Air 05/21/23 12:00 O2 Flow Rate 2 05/21/23 06:00 Documenting provider has reviewed patient's vital signs: yes Common normals: oriented x3 General appearance: in distress HENMT Common normals: normocephalic and head/scalp atraumatic Head and scalp: normocephalic and atraumatic Respiratory Common normals: normal respiratory effort and clear to auscultation bilaterally Effort & inspection: able to speak in complete sentences Auscultation: clear to auscultation bilaterally Cardio Common normals: regular rate, S1 normal heart sound and S2 normal heart sound Rate: regular rate Heart sounds: S1 normal and S2 normal GI Common normals: no hepatosplenomegaly Inspection: abdominal distension Palpation: tender Details: other (generalized but worse in epigastric region. ) Other: Surgical scar from prior surgery. Extremity Common normals: no clubbing, cyanosis or edema Neuro Common normals: oriented x3, moves all extremities and no focal motor deficits Psych Common normals: mental status grossly normal, denies hallucinations, denies homicidal ideation and denies suicidal ideation Results Labs Labs: Short CBC 05/21/23 05/21/23 Range/Units 01:05 05:27 WBC 8.5 5.7 (4.0-11.0) 10^3/uL Hgb 14.9 13.6 L (14.0-18.0) g/dL Hct 42.9 41.3 L (42.0-54.0) % Plt Count 183 132 L (150-450) 10^3/uL BMP 05/21/23 05/21/23 01:05 05:27 Sodium 135 L 138 Potassium 3.6 3.7 Chloride 100 105 Carbon Dioxide 24.5 29.2 BUN 8.0 8.0 Creatinine 1.29 1.08 Glucose 132 H 119 H Calcium 8.7 7.6 L Liver Function 05/21/23 05/21/23 Range/Units 01:05 05:27 Total Bilirubin 1.1 H 1.0 (0.2-1.0) mg/dL AST 40 H 29 (15-37) U/L ALT 43 31 (16-63) U/L Alkaline Phosphatase 114 99 (46-116) U/L Albumin 3.7 3.2 L (3.4-5.0) g/dL Assessment and Plan Assessment and Plan (1) Acute on chronic pancreatitis: Assessment and Plan: Acute on chronic pancreatitis. Likely sec to alcohol intake. Advance diet to full liquid. Decrease IVF to 100 ml/hr. c/w zofran as needed for nausea/vomiting. PO oxycodone and IV morphine as needed for pain Suportive care, monitor I/O. Advance diet as tolerated (2) CAD (coronary artery disease): Assessment and Plan: Stable. c/w ASA, Plavix, Statin (3) Chronic systolic HF (heart failure): Assessment and Plan: Hx of HFrEF. Reduced IVF LR to 100 ml/hr to avoid volume overload. C/w toprol, entresto. (4) HLD (hyperlipidemia): Assessment and Plan: C/w statin (5) PVD (peripheral vascular disease): Assessment and Plan: Stable. C/w home meds.
[2023-05-21] MEDS: SACUBITRIL/VALSARTAN 24 MG-26 MG TABLET 1 TAB PO ×2 (14:00→21:08)
[2023-05-21] MEDS: LACTATED RINGER'S SOLUTION 1,000 ML 100 ML IV (16:38)
[2023-05-21] MEDS: ATORVASTATIN CALCIUM 40 MG TABLET 80 MG PO (21:08)
[2023-05-21] MEDS: MORPHINE SULFATE 4 MG/ML VIAL IV (22:12)
[2023-05-22] VITALS (18 sets, daily range): BP systolic 142–182; BP diastolic 79–100; PULSE 56–92; RESP 18; TEMP 36.9–37; O2SAT 94–100
[2023-05-22] MEDS: MORPHINE SULFATE 4 MG/ML VIAL IV ×2 (02:20→06:51)
[2023-05-22] MEDS: LACTATED RINGER'S SOLUTION 1,000 ML 100 ML IV (05:07)
[2023-05-22 05:23] LABS: Basophils Percent Auto 0.3 % (0.2-2.0); Eosinophils Percent Auto 0.4 % (0.9-7.0); Hematocrit 41.1 % (42.0-54.0); Hemoglobin 13.5 g/dL (14.0-18.0); Immature Granulocytes Abs Auto 0.03 10^3/uL (0.00-0.03); Immature Granulocytes Pct Auto 0.4 % (0.0-0.5); Lymphocytes Absolute Auto 0.9 10^3/uL (1.2-3.8); Lymphocytes Percent Auto 12.1 % (20.5-60.0); Mean Corpuscular HGB Conc 32.8 g/dL (29.9-35.2); Mean Corpuscular Hemoglobin 33.6 pg (25.9-34.0); Mean Corpuscular Volume 102.2 fL (80.0-94.0); Mean Platelet Volume 9.9 fL (9.5-13.5); Monocytes Absolute Auto 0.4 10^3/uL (0.3-0.8); Monocytes Percent Auto 5.9 % (1.7-12.0); Neutrophils Absolute Auto 5.9 10^3/uL (1.4-6.5); Neutrophils Percent Auto 80.9 % (43.0-75.0); Platelet Count 130 10^3/uL (150-450); Red Blood Count 4.02 10^6/uL (4.70-6.10); White Blood Count 7.3 10^3/uL (4.0-11.0)
[2023-05-22 05:34] LABS: Alanine Aminotransferase 23 U/L (16-63); Albumin Level 3.2 g/dL (3.4-5.0); Alkaline Phosphatase 93 U/L (46-116); Aspartate Amino Transferase 23 U/L (15-37); BUN Creatinine Ratio 4.6; Bilirubin Total 1.3 mg/dL (0.2-1.0); Calcium 8.3 mg/dL (8.5-10.1); Carbon Dioxide 30.4 mmol/L (21.0-32.0); Chloride 96 mmol/L (98-107); Estimated GFR (African America >60 (>=60); Estimated GFR (Non-African Ame >60 (>=60); Globulin 3.2 g/dL; Glucose 107 mg/dL (74-106); Potassium 3.4 mmol/L (3.5-5.1); Sodium 134 mmol/L (136-145); Total Protein 6.4 g/dL (6.4-8.2)
[2023-05-22] MEDS: HYDRALAZINE HCL 20 MG/ML VIAL 10 MG IVP (05:42)
[2023-05-22] MEDS: ACETAMINOPHEN 325 MG TABLET 650 MG PO (07:59)
[2023-05-22] MEDS: METOPROLOL SUCCINATE 50 MG TAB.ER.24H PO (08:00)
[2023-05-22] MEDS: AMITRIPTYLINE HCL 50 MG TABLET PO (08:00)
[2023-05-22] MEDS: CLOPIDOGREL BISULFATE 75 MG TABLET PO (08:00)
[2023-05-22] MEDS: MAGNESIUM OXIDE 400 MG TABLET PO (08:00)
[2023-05-22] MEDS: ENOXAPARIN SODIUM 40 MG/0.4 ML SYRINGE SUBQ (08:00)
[2023-05-22] MEDS: ASPIRIN 81 MG TABLET.DR PO (08:00)
[2023-05-22] MEDS: SACUBITRIL/VALSARTAN 24 MG-26 MG TABLET 1 TAB PO ×2 (08:00→21:06)
--- NOTE | 2023-05-22 08:47 | PM.PN ---
Progress Note: Subjective Subjective Interval history: Pt is a 57M with PMH of Pancreatitis, Tobacco abuse, chronic neck pain, migraines who presented to the ED with complaint of abdominal pain, n/v. He reports drinking a large amount of moonshine prior to this episode which he thought was water. He states that he does not drink alcohol much. Lipase was noted to be mildly elevated and CT Abdomen showed mild inflammatory changes of the pancreas. patient says he feels better than admission but about the same as yesterday. He has been tolerating well and broth. 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 He has been up walking the halls and is waiting to have his bowels move. He denies any vomiting and says pain is about an eight out of ten. Although his pain when he complains he appears to be resting well per the nursing staff. Discussed with her and we will DC IV pain medication today and try to continue on with oral pain medication, and advance diet. Patient has been afebrile white blood cell count is normal still with elevated lipase. Exam Narrative Exam Narrative: General: Patient is alert, and oriented to person, place and time with normal affect, proper hygiene Skin: no visible rashes, or ulcers Head: atraumatic, acephalic Eyes: PERRLA, no nystagmus present, conjunctiva clear, no scleral icterus Heart: Normal rate and rhythm, no murmurs/rubs/gallops Lungs: no audible wheezes, crackles and normal breath sounds all lung beard Abdomen: Normal audible bowel sounds, mild distension, No palpable masses, no organomegaly, pain with palpation of the LUQ Neuro: CN II-X grossly intact, normal sensation upper and lower extremities Constitutional Vital Signs, click to edit/add: Last Vital Signs Temp 98.5 F 05/22/23 05:00 Pulse 65 05/22/23 07:57 Resp 18 05/22/23 07:53 BP 142/100 H 05/22/23 06:54 Pulse Ox 98 05/22/23 07:57 O2 Del Method Room Air 05/22/23 05:00 O2 Flow Rate 2 05/21/23 21:11 Progress Note: Objective Labs Labs: Short CBC 05/22/23 Range/Units 03:53 WBC 7.3 (4.0-11.0) 10^3/uL Hgb 13.5 L (14.0-18.0) g/dL Hct 41.1 L (42.0-54.0) % Plt Count 130 L (150-450) 10^3/uL BMP 05/22/23 03:53 Sodium 134 L Potassium 3.4 L Chloride 96 L Carbon Dioxide 30.4 BUN 4.0 L Creatinine 0.87 Glucose 107 H Calcium 8.3 L Liver Function 05/22/23 Range/Units 03:53 Total Bilirubin 1.3 H (0.2-1.0) mg/dL AST 23 (15-37) U/L ALT 23 (16-63) U/L Alkaline Phosphatase 93 (46-116) U/L Albumin 3.2 L (3.4-5.0) g/dL Progress Note: A&P Assessment and Plan (1) Acute on chronic pancreatitis: Assessment and Plan: DC IV morphine, continue oral oxycodone as needed. Advance diet as tolerated.still with elevated lipase of three ninety-five. normal liver function tests (2) CAD (coronary artery disease): Assessment and Plan: continue aspirin, Plavix, statin medication and entresto (3) Chronic systolic HF (heart failure): Assessment and Plan: no acute congestive heart failure exacerbation, continue home medications (4) HLD (hyperlipidemia): Assessment and Plan: continue atorvastatin (5) PVD (peripheral vascular disease): Assessment and Plan: continue home medications Plan patient is a full code patient is in observation status, hopeful discharge tomorrow Lovenox for dvt prophylaxis
[2023-05-22] MEDS: OXYCODONE HCL 5 MG TABLET PO ×2 (09:09→17:07)
[2023-05-22] MEDS: MAALOX (MAG HYDROX/ALUMINUM HYD/SIMETH) 30 ML ORAL.SUSP PO (09:21)
[2023-05-22] MEDS: DOCUSATE SODIUM 100 MG CAPSULE PO (09:22)
[2023-05-22] MEDS: PANTOPRAZOLE SODIUM 40 MG VIAL IV (21:06)
[2023-05-22] MEDS: ATORVASTATIN CALCIUM 40 MG TABLET 80 MG PO (21:06)
[2023-05-23] VITALS (19 sets, daily range): BP systolic 96–137; BP diastolic 58–83; PULSE 73–108; RESP 16–18; TEMP 36.5–37.3; O2SAT 91–97
[2023-05-23] MEDS: OXYCODONE HCL 5 MG TABLET PO ×4 (02:14→21:20)
[2023-05-23 05:36] LABS: Basophils Percent Auto 0.2 % (0.2-2.0); Hematocrit 45.6 % (42.0-54.0); Immature Granulocytes Abs Auto 0.04 10^3/uL (0.00-0.03); Immature Granulocytes Pct Auto 0.3 % (0.0-0.5); Lymphocytes Absolute Auto 0.7 10^3/uL (1.2-3.8); Mean Corpuscular HGB Conc 35.1 g/dL (29.9-35.2); Mean Corpuscular Hemoglobin 33.4 pg (25.9-34.0); Mean Corpuscular Volume 95.2 fL (80.0-94.0); Mean Platelet Volume 10.2 fL (9.5-13.5); Monocytes Absolute Auto 0.7 10^3/uL (0.3-0.8); Monocytes Percent Auto 6.1 % (1.7-12.0); Neutrophils Absolute Auto 10.4 10^3/uL (1.4-6.5); Neutrophils Percent Auto 87.4 % (43.0-75.0); Platelet Count 153 10^3/uL (150-450); Red Blood Count 4.79 10^6/uL (4.70-6.10); Red Cell Distribution Width 13.5 % (11.0-15.0); White Blood Count 11.9 10^3/uL (4.0-11.0)
[2023-05-23 05:41] LABS: Alanine Aminotransferase 23 U/L (16-63); Albumin Globulin Ratio 0.8; Alkaline Phosphatase 88 U/L (46-116); Anion Gap 12.4; Aspartate Amino Transferase 15 U/L (15-37); BUN Creatinine Ratio 8.8; Bilirubin Total 2.4 mg/dL (0.2-1.0); Calcium 8.7 mg/dL (8.5-10.1); Carbon Dioxide 28.7 mmol/L (21.0-32.0); Chloride 88 mmol/L (98-107); Estimated GFR (African America >60 (>=60); Estimated GFR (Non-African Ame >60 (>=60); Globulin 3.7 g/dL; Glucose 105 mg/dL (74-106); Potassium 3.1 mmol/L (3.5-5.1); Sodium 126 mmol/L (136-145); Total Protein 6.7 g/dL (6.4-8.2)
[2023-05-23] MEDS: DOCUSATE SODIUM 100 MG CAPSULE PO (07:13)
[2023-05-23] MEDS: POLYETHYLENE GLYCOL 3350 17 GM POWDER PACKET PO (07:13)
[2023-05-23] MEDS: ACETAMINOPHEN 325 MG TABLET 650 MG PO (07:13)
--- NOTE | 2023-05-23 07:44 | PM.PN ---
Progress Note: Subjective Subjective Interval history: Lipase was noted to be mildly elevated and CT Abdomen showed mild inflammatory changes of the pancreas. Patient says he feels worse today. Some pain with urination, episodes of nausea. He has been up walking the halls and is waiting to have his bowels move. Pain still present. Lipase elevated 341 down to 181. Elevated WBC's today 11.6, low sodium 126. It appears patient has taken a step backward today. Exam Narrative Exam Narrative: General: Patient is alert, and oriented to person, place and time with normal affect, proper hygiene Skin: no visible rashes, or ulcers Head: atraumatic, acephalic Eyes: PERRLA, no nystagmus present, conjunctiva clear, no scleral icterus Heart: Normal rate and rhythm, no murmurs/rubs/gallops Lungs: no audible wheezes, crackles and normal breath sounds all lung beard Abdomen: Normal audible bowel sounds, mild distension, ventral hernia/reducible, no organomegaly, pain with palpation of the LUQ Neuro: CN II-X grossly intact, normal sensation upper and lower extremities Constitutional Vital Signs, click to edit/add: Last Vital Signs Temp 99.2 F 05/23/23 05:27 Pulse 80 05/23/23 06:00 Resp 18 05/23/23 05:27 BP 137/83 05/23/23 05:27 Pulse Ox 91 L 05/23/23 05:27 O2 Del Method Room Air 05/23/23 05:27 O2 Flow Rate 2 05/21/23 21:11 Progress Note: Objective Labs Labs: Short CBC 05/23/23 Range/Units 04:43 WBC 11.9 H (4.0-11.0) 10^3/uL Hgb 16.0 (14.0-18.0) g/dL Hct 45.6 (42.0-54.0) % Plt Count 153 (150-450) 10^3/uL BMP 05/23/23 04:43 Sodium 126 L Potassium 3.1 L Chloride 88 L Carbon Dioxide 28.7 BUN 7.0 Creatinine 0.80 Glucose 105 Calcium 8.7 Liver Function 05/23/23 Range/Units 04:43 Total Bilirubin 2.4 H (0.2-1.0) mg/dL AST 15 (15-37) U/L ALT 23 (16-63) U/L Alkaline Phosphatase 88 (46-116) U/L Albumin 3.0 L (3.4-5.0) g/dL Progress Note: A&P Assessment and Plan (1) Acute on chronic pancreatitis: Assessment and Plan: DC IV morphine, continue oral oxycodone as needed. Advance diet as tolerated.still with elevated lipase 181. normal liver function tests but elevated total Bili (2) CAD (coronary artery disease): Assessment and Plan: continue aspirin, Plavix, statin medication and entresto (3) Chronic systolic HF (heart failure): Assessment and Plan: no acute congestive heart failure exacerbation, continue home medications (4) HLD (hyperlipidemia): Assessment and Plan: continue atorvastatin (5) PVD (peripheral vascular disease): Assessment and Plan: continue home medications (6) Hypokalemia: Assessment and Plan: will place on oral potassium replacement 20mEQ BID (7) Hyponatremia: Assessment and Plan: 126, will place on IVF NS @125 (8) Leukocytosis: Assessment and Plan: check UA, start Rocephin, symptoms of urinary urgency and burning. Plan patient is a full code patient was in observation status, do to multiple electrolyte abnormalities and leukocytosis patient changed to inpatient status Lovenox for dvt prophylaxis
[2023-05-23] MEDS: CLOPIDOGREL BISULFATE 75 MG TABLET PO (08:24)
[2023-05-23] MEDS: POTASSIUM CHLORIDE 10 MEQ ER TABLET 20 MEQ PO ×2 (08:25→21:20)
[2023-05-23] MEDS: AMITRIPTYLINE HCL 50 MG TABLET PO (08:25)
[2023-05-23] MEDS: MAGNESIUM OXIDE 400 MG TABLET PO (08:25)
[2023-05-23] MEDS: SACUBITRIL/VALSARTAN 24 MG-26 MG TABLET 1 TAB PO ×2 (08:25→21:20)
[2023-05-23] MEDS: ASPIRIN 81 MG TABLET.DR PO (08:25)
[2023-05-23] MEDS: ENOXAPARIN SODIUM 40 MG/0.4 ML SYRINGE SUBQ (08:26)
[2023-05-23] MEDS: METOPROLOL SUCCINATE 50 MG TAB.ER.24H PO (09:32)
[2023-05-23] MEDS: 0.9 % SODIUM CHLORIDE 1,000 ML 125 ML IV ×2 (09:53→16:57)
[2023-05-23 10:28] LABS: Bilirubin Urine SMALL (NEGATIVE); Blood Urine MODERATE (NEGATIVE); Clarity Urine CLEAR (CLEAR); Color Urine ORANGE (YELLOW); Glucose Urine UA NEGATIVE (NEGATIVE); Ketones Urine >=80 mg/dL (NEGATIVE); Leukocyte Esterase Urine NEGATIVE (NEGATIVE); Nitrite Urine NEGATIVE (NEGATIVE); Protein Urine >=300 mg/dL (NEG/TRACE); Specific Gravity Urine 1.025 (1.005-1.025); pH Urine 6.5 (5.0-9.0)
[2023-05-23 10:39] LABS: Urine Microscopic Indicated YES
[2023-05-23] MEDS: CEFTRIAXONE 1,000 MG in 0.9 % SODIUM CHLORIDE 50 ML 100 MG IV (10:45)
[2023-05-23 10:52] LABS: WBC Urine 0-2 #/HPF (NONE SEEN)
[2023-05-23 10:53] LABS: Bacteria Urine NONE SEEN #/HPF (NONE SEEN); Mucus Urine NONE SEEN (NONE SEEN); Squamous Epithelial Cell Urine FEW #/LPF (NONE/RARE)
--- NOTE | 2023-05-23 11:45 | US_ITS ---
The [address] [address] Patient Name: CHARLES ROBERSON MRN: [id number] date: 1965 Sex: M Assigned Patient Location: [place] Current Patient Location: [place] Accession/Order Number: [id number] Exam Date: 05/23/2023 13:28 Report Date: 05/24/2023 12:39 At the request of: DEB CHILDRESS Procedure: US renal bladder Ultrasound kidneys, bilateral HISTORY: suprapubic tenderness, hematuria COMPARISON: CT 05/21/2023. TECHNIQUE: Transabdominal ultrasound imaging of both kidneys was performed. FINDINGS: Both kidneys demonstrate normal echotexture and echogenicity. The right kidney measures 3.8 x 5.2 x 5.9 cm, although could be undermeasured since upper pole and lower pole obscured by shadowing from ribs. There is no hydronephrosis of right kidney. The left kidney measures 12.7 x 4.3 x 4.8 cm. No hydronephrosis of left kidney. No discrete renal lesion or renal stone is seen. The bladder is distended with prevoid volume at 356 cc. No focal bladder abnormality. Ureteral jets not assessed. US/US renal bladder IMPRESSION: 1. Right kidney measuring slightly smaller than the left, probably undermeasured since the upper and lower poles of right kidney are obscured by shadowing from ribs. 2. Negative for hydronephrosis, structural renal lesion, or renal stone by ultrasound. 2. Normal appearance of bladder. Electronically authenticated by: MATT BANSAL Date: 05/24/2023 12:39
--- NOTE | 2023-05-23 14:37 | PC.NURSE ---
Patient refuses SCD's. Up ad luis
--- NOTE | 2023-05-23 20:07 | RESP.RT ---
No PRN breathing tx given. Pt resting. No respiratory distress noted.
[2023-05-23] MEDS: ATORVASTATIN CALCIUM 40 MG TABLET 80 MG PO (21:20)
[2023-05-24] VITALS (18 sets, daily range): BP systolic 94–116; BP diastolic 61–76; PULSE 83–106; RESP 16–18; TEMP 36.6–36.9; O2SAT 91–95
[2023-05-24] MEDS: 0.9 % SODIUM CHLORIDE 1,000 ML 125 ML IV ×3 (01:08→17:43)
[2023-05-24] MEDS: OXYCODONE HCL 5 MG TABLET PO ×3 (03:15→21:09)
[2023-05-24 05:29] LABS: Basophils Percent Auto 0.3 % (0.2-2.0); Eosinophils Absolute Auto 0.1 10^3/uL (0.0-0.7); Eosinophils Percent Auto 0.4 % (0.9-7.0); Hematocrit 41.4 % (42.0-54.0); Hemoglobin 14.1 g/dL (14.0-18.0); Immature Granulocytes Abs Auto 0.04 10^3/uL (0.00-0.03); Immature Granulocytes Pct Auto 0.4 % (0.0-0.5); Lymphocytes Absolute Auto 1.2 10^3/uL (1.2-3.8); Mean Corpuscular HGB Conc 34.1 g/dL (29.9-35.2); Mean Corpuscular Hemoglobin 33.3 pg (25.9-34.0); Mean Corpuscular Volume 97.9 fL (80.0-94.0); Mean Platelet Volume 10.6 fL (9.5-13.5); Monocytes Absolute Auto 0.9 10^3/uL (0.3-0.8); Monocytes Percent Auto 7.9 % (1.7-12.0); Platelet Count 159 10^3/uL (150-450); Red Blood Count 4.23 10^6/uL (4.70-6.10); White Blood Count 11.2 10^3/uL (4.0-11.0)
[2023-05-24 05:58] LABS: Alanine Aminotransferase 14 U/L (16-63); Albumin Globulin Ratio 0.6; Albumin Level 2.2 g/dL (3.4-5.0); Alkaline Phosphatase 75 U/L (46-116); Anion Gap 11.5; Aspartate Amino Transferase 15 U/L (15-37); BUN Creatinine Ratio 12.5; Calcium 8.2 mg/dL (8.5-10.1); Carbon Dioxide 25.8 mmol/L (21.0-32.0); Chloride 93 mmol/L (98-107); Estimated GFR (African America >60 (>=60); Estimated GFR (Non-African Ame 58 (>=60); Globulin 3.5 g/dL; Glucose 92 mg/dL (74-106); Potassium 3.3 mmol/L (3.5-5.1); Sodium 127 mmol/L (136-145); Total Protein 5.7 g/dL (6.4-8.2)
[2023-05-24] MEDS: CLOPIDOGREL BISULFATE 75 MG TABLET PO (09:03)
[2023-05-24] MEDS: POTASSIUM CHLORIDE 10 MEQ ER TABLET 20 MEQ PO ×2 (09:03→21:05)
[2023-05-24] MEDS: METOPROLOL SUCCINATE 50 MG TAB.ER.24H PO (09:03)
[2023-05-24] MEDS: AMITRIPTYLINE HCL 50 MG TABLET PO (09:03)
[2023-05-24] MEDS: ENOXAPARIN SODIUM 40 MG/0.4 ML SYRINGE SUBQ (09:04)
[2023-05-24] MEDS: ASPIRIN 81 MG TABLET.DR PO (09:04)
[2023-05-24] MEDS: SACUBITRIL/VALSARTAN 24 MG-26 MG TABLET 1 TAB PO ×2 (09:04→21:06)
[2023-05-24] MEDS: MAGNESIUM OXIDE 400 MG TABLET PO (09:04)
--- NOTE | 2023-05-24 10:44 | CM.NOTE ---
Rounds made with Dr. North pt to have renal ultrasound today. Possible discharge this afternoon.
[2023-05-24] MEDS: CEFTRIAXONE 1,000 MG in 0.9 % SODIUM CHLORIDE 50 ML 100 MG IV (11:07)
--- NOTE | 2023-05-24 11:48 | CM.NOTE ---
Talked with pt regarding alcohol use, pt states I do have a history or alcohol and drug abuse and have been to rehab in the past. I no longer use drugs and only have alcohol occasionally d/t my pancreatitis. Pt denies any need for alcohol counseling or rehab at this time. Pt states he would like to see someone regarding mental health and outpatient counseling. Pt verbalizes counseling has assisted him in the past with staying sober and having someone to speak with about his mental wellbeing. Pt denies any active thoughts of hurting himself. Pt lives with his ex- and has no concerns with discharge to home. Pt giving information and facilities he could contact to set up outpatient counseling. Pt denies any need with setting up appt, pt will call himself.
--- NOTE | 2023-05-24 12:02 | PM.PN ---
Progress Note: Subjective Subjective Interval history: Lipase was noted to be mildly elevated and CT Abdomen showed mild inflammatory changes of the pancreas. Patient says he feels better today, just not sleeping much at night time. Some pain with urination, episodes of nausea. He has been up walking the halls and is waiting to have his bowels move, still no BM. Pain still present but improved. Lipase normal this morning. Elevated WBC's today 11.2, low sodium 127. Renal ultrasound this morning. Exam Narrative Exam Narrative: General: Patient is alert, and oriented to person, place and time with normal affect, proper hygiene Skin: no visible rashes, or ulcers Head: atraumatic, acephalic Eyes: PERRLA, no nystagmus present, conjunctiva clear, no scleral icterus Heart: Normal rate and rhythm, no murmurs/rubs/gallops Lungs: no audible wheezes, crackles and normal breath sounds all lung beard Abdomen: Normal audible bowel sounds, mild distension, ventral hernia/reducible, no organomegaly, pain with palpation of the RLQ Neuro: CN II-X grossly intact, normal sensation upper and lower extremities Constitutional Vital Signs, click to edit/add: Last Vital Signs Temp 97.8 F 05/24/23 07:00 Pulse 89 05/24/23 10:00 Resp 18 05/24/23 07:00 BP 116/76 05/24/23 07:00 Pulse Ox 92 L 05/24/23 10:10 O2 Del Method Room Air 05/24/23 10:10 O2 Flow Rate 2 05/21/23 21:11 Progress Note: Objective Labs Labs: Short CBC 05/24/23 Range/Units 04:30 WBC 11.2 H (4.0-11.0) 10^3/uL Hgb 14.1 (14.0-18.0) g/dL Hct 41.4 L (42.0-54.0) % Plt Count 159 (150-450) 10^3/uL BMP 05/24/23 04:30 Sodium 127 L Potassium 3.3 L Chloride 93 L Carbon Dioxide 25.8 BUN 16.0 Creatinine 1.28 Glucose 92 Calcium 8.2 L Liver Function 05/24/23 Range/Units 04:30 Total Bilirubin 2.0 H (0.2-1.0) mg/dL AST 15 (15-37) U/L ALT 14 L (16-63) U/L Alkaline Phosphatase 75 (46-116) U/L Albumin 2.2 L (3.4-5.0) g/dL Progress Note: A&P Assessment and Plan (1) Acute on chronic pancreatitis: Assessment and Plan: continue oral oxycodone as needed. Advance diet as tolerated. normal lipase 39. normal liver function tests. I think most pain today is from constipation (2) CAD (coronary artery disease): Assessment and Plan: continue aspirin, Plavix, statin medication and entresto (3) Chronic systolic HF (heart failure): Assessment and Plan: no acute congestive heart failure exacerbation, continue home medications (4) HLD (hyperlipidemia): Assessment and Plan: continue atorvastatin (5) PVD (peripheral vascular disease): Assessment and Plan: continue home medications (6) Hypokalemia: Assessment and Plan: will place on oral potassium replacement 20mEQ BID (7) Hyponatremia: Assessment and Plan: 127, continue on IVF NS @125 (8) Leukocytosis: Assessment and Plan: continue Rocephin, symptoms of urinary urgency and burning, renal ultrasound today (9) Constipation: Assessment and Plan: start lactulose Plan patient is a full code patient was in observation status, do to multiple electrolyte abnormalities and leukocytosis patient changed to inpatient status Lovenox for dvt prophylaxis
[2023-05-24] MEDS: LACTULOSE 10 GM/15 ML UD CUP PO ×2 (13:59→21:06)
[2023-05-24] MEDS: SENNOSIDES 8.6 MG TABLET PO (15:42)
[2023-05-24] MEDS: MAALOX (MAG HYDROX/ALUMINUM HYD/SIMETH) 30 ML ORAL.SUSP PO (15:42)
--- NOTE | 2023-05-24 20:16 | RESP.RT ---
No PRN breathing tx given. Pt denies need. No respiratory distress noted.
[2023-05-24] MEDS: ATORVASTATIN CALCIUM 40 MG TABLET 80 MG PO (21:06)
[2023-05-25] VITALS (8 sets, daily range): BP systolic 102–110; BP diastolic 67–72; PULSE 75–81; RESP 16–18; TEMP 36.6; O2SAT 93–95
[2023-05-25] MEDS: 0.9 % SODIUM CHLORIDE 1,000 ML 125 ML IV (01:56)
[2023-05-25] MEDS: LACTULOSE 10 GM/15 ML UD CUP PO (05:15)
[2023-05-25 05:45] LABS: Basophils Percent Auto 0.3 % (0.2-2.0); Eosinophils Absolute Auto 0.1 10^3/uL (0.0-0.7); Hematocrit 37.4 % (42.0-54.0); Hemoglobin 12.7 g/dL (14.0-18.0); Immature Granulocytes Abs Auto 0.03 10^3/uL (0.00-0.03); Immature Granulocytes Pct Auto 0.4 % (0.0-0.5); Lymphocytes Absolute Auto 1.2 10^3/uL (1.2-3.8); Lymphocytes Percent Auto 17.4 % (20.5-60.0); Mean Corpuscular Hemoglobin 33.8 pg (25.9-34.0); Mean Corpuscular Volume 99.5 fL (80.0-94.0); Mean Platelet Volume 10.3 fL (9.5-13.5); Monocytes Absolute Auto 0.6 10^3/uL (0.3-0.8); Neutrophils Absolute Auto 5.1 10^3/uL (1.4-6.5); Neutrophils Percent Auto 71.9 % (43.0-75.0); Platelet Count 164 10^3/uL (150-450); Red Blood Count 3.76 10^6/uL (4.70-6.10); Red Cell Distribution Width 13.9 % (11.0-15.0); White Blood Count 7.1 10^3/uL (4.0-11.0)
[2023-05-25] MEDS: ACETAMINOPHEN 325 MG TABLET 650 MG PO (06:12)
[2023-05-25 06:17] LABS: Alanine Aminotransferase 23 U/L (16-63); Albumin Globulin Ratio 0.6; Alkaline Phosphatase 142 U/L (46-116); Aspartate Amino Transferase 37 U/L (15-37); BUN Creatinine Ratio 15.9; Bilirubin Total 0.9 mg/dL (0.2-1.0); Calcium 8.1 mg/dL (8.5-10.1); Carbon Dioxide 26.7 mmol/L (21.0-32.0); Chloride 98 mmol/L (98-107); Estimated GFR (African America >60 (>=60); Estimated GFR (Non-African Ame >60 (>=60); Globulin 3.5 g/dL; Glucose 105 mg/dL (74-106); Potassium 3.7 mmol/L (3.5-5.1); Sodium 131 mmol/L (136-145); Total Protein 5.5 g/dL (6.4-8.2)
--- NOTE | 2023-05-25 08:40 | P.DS_ITS ---
DS: Providers Provider Date of admission: 05/23/23 11:47 Primary care physician: Shaikh Jessika MD Admitting clinician: Shaikh Jessika Consults: 05/21/23 Consult to Environmental Sampling Technician Routine Reason for consult:: Transportation Attending physician on discharge: Elisa North DS: Diagnosis Discharge Diagnosis (1) Acute on chronic pancreatitis: (2) CAD (coronary artery disease): (3) Chronic systolic HF (heart failure): (4) HLD (hyperlipidemia): (5) PVD (peripheral vascular disease): (6) Hypokalemia: (7) Hyponatremia: (8) Leukocytosis: (9) Constipation: DS: Summary Hospital Course Hospital Course: Pt is a 57M with PMH of Pancreatitis, Tobacco abuse, chronic neck pain, migraines who presented with complaint of abdominal pain, n/v. He reports drinking a large amount of moonshine prior to this episode which he thought was water. elevated Lipase and CT Abdomen showed mild inflammatory changes of the pancreas. His pain was controlled on IV pain medication and antiemetics. He developed a UTI, and leukocytosis, wbc's normal range 7.1 at the time of discharge. Renal ultrasound was negative for any acute pathology. Rocephin was initiated and continued. Patient will be discharged home on Keflex 500mg BID x 7 days. His lipase level went from 395 down to 38 at the time of discharge. Pain has resolved. No Rx for narcotics at the time of discharge as patient is pain free. Patient also developed opioid induced constipation which was relieved by Lactulose. He will be discharged home today with close follow up with PCP. He is encouraged to stop drinking and was received resources by the case management te am. He is to return to the ER with any worsening signs or symptoms. Monitor Ventral hernia as outpatient. Status at Discharge Functional status at discharge: independent ambulation Overall status at discharge: patient is back to baseline Time Spent with Patient Time attestation: Total time spent providing and/or coordinating discharge services: Time spent: greater than 30 minutes Exam Narrative Exam Narrative: General: Patient is alert, and oriented to person, place and time with normal affect, proper hygiene Skin: no visible rashes, or ulcers Head: atraumatic, acephalic Eyes: PERRLA, no nystagmus present, conjunctiva clear, no scleral icterus Heart: Normal rate and rhythm, no murmurs/rubs/gallops Lungs: no audible wheezes, crackles and normal breath sounds all lung beard Abdomen: Normal audible bowel sounds, no distension, ventral hernia/reducible, no organomegaly, no pain with palpation Neuro: CN II-X grossly intact, normal sensation upper and lower extremities Constitutional Vital Signs, click to edit/add: Last Vital Signs Temp 97.8 F 05/25/23 05:21 Pulse 75 05/25/23 08:00 Resp 18 05/25/23 05:21 BP 110/72 05/25/23 05:21 Pulse Ox 93 L 05/25/23 05:21 O2 Del Method Room Air 05/25/23 05:21 O2 Flow Rate 2 05/21/23 21:11 DS: Data Data Completed and Pending Labs on day of discharge: Labs from last 24 hours 05/25/23 04:36 WBC 7.1 RBC 3.76 L Hgb 12.7 L Hct 37.4 L MCV 99.5 H MCH 33.8 MCHC 34.0 RDW 13.9 Plt Count 164 MPV 10.3 Neut % (Auto) 71.9 Lymph % (Auto) 17.4 L [place] % (Auto) 9.0 Eos % (Auto) 1.0 Baso % (Auto) 0.3 Neut # (Auto) 5.1 Lymph # (Auto) 1.2 [place] # (Auto) 0.6 Eos # (Auto) 0.1 Baso # (Auto) 0.0 Abs Immat Gran (auto) 0.03 Imm/Tot Granulo (auto) 0.4 Sodium 131 L Potassium 3.7 Chloride 98 Carbon Dioxide 26.7 Anion Gap 10.0 BUN 17.0 Creatinine 1.07 Est GFR ( Amer) >60 Est GFR (Non-Af Amer) >60 BUN/Creatinine Ratio 15.9 Glucose 105 Calcium 8.1 L Total Bilirubin 0.9 AST 37 ALT 23 Alkaline Phosphatase 142 H Total Protein 5.5 L Albumin 2.0 L Globulin 3.5 Albumin/Globulin Ratio 0.6 Lipase 38.0 Discharge Plan Discharge Disposition: Home, Self-Care Condition: Good Discharge Medications: New cephalexin 500 mg capsule 500 mg PO BID 7 Days Qty: 14 0RF Continued albuterol sulfate [Ventolin HFA] 90 mcg/actuation HFA aerosol inhaler 2 puff INHALATION Q6H PRN (Reason: shortness of breath or wheezing) amitriptyline 50 mg tablet 50 mg PO DAILY aspirin 81 mg tablet,delayed release (DR/EC) 81 mg PO DAILY atorvastatin 80 mg tablet 80 mg PO DAILY clopidogrel 75 mg tablet 75 mg PO DAILY metoprolol succinate 50 mg tablet extended release 24 hr 50 mg PO DAILY Entresto 24-26 mg tablet 1 tab PO BID spironolactone 25 mg tablet 25 mg PO DAILY magnesium oxide 400 mg (241.3 mg magnesium) tablet 400 mg PO DAILY Activity: increase activity as tolerated Diet: advance to your usual diet Patient Instructions: Cephalexin (By mouth), Pancreatitis (DC) Forms: Portal Instructions Follow Up Appointments: Follow up appt. with Dr. Rosen on @ 10:30am Office #: [phone]
[2023-05-25] MEDS: ENOXAPARIN SODIUM 40 MG/0.4 ML SYRINGE SUBQ (08:48)
[2023-05-25] MEDS: ASPIRIN 81 MG TABLET.DR PO (08:49)
[2023-05-25] MEDS: METOPROLOL SUCCINATE 50 MG TAB.ER.24H PO (08:49)
[2023-05-25] MEDS: POTASSIUM CHLORIDE 10 MEQ ER TABLET 20 MEQ PO (08:49)
[2023-05-25] MEDS: SACUBITRIL/VALSARTAN 24 MG-26 MG TABLET 1 TAB PO (08:49)
[2023-05-25] MEDS: MAGNESIUM OXIDE 400 MG TABLET PO (08:49)
[2023-05-25] MEDS: AMITRIPTYLINE HCL 50 MG TABLET PO (08:49)
[2023-05-25] MEDS: CLOPIDOGREL BISULFATE 75 MG TABLET PO (08:49)
--- NOTE | 2023-05-25 10:25 | CM.NOTE ---
Rounds made with gerardo Rodgers to discharge to home today. No discharge needs.
--- NOTE | 2023-05-27 11:59 | CM.DCFOLLOWU ---
Second attempt at discharge follow up call completed today, first number listed for patient a gentlemary lou answered and said people have been calling his number over a month and this is not the number for Jovan. I also called patient's first listed emergency contact-son, and call went directly to voicemail. Unable to complete discharge follow up call at this time.
--- NOTE | 2023-05-28 13:50 | CM.DCFOLLOWU ---
Third attempt at discharge follow up call. No answer. Also attempted to call emergency contact at [phone], no answer. Unable to reach patient at this time.
== END 2023-05-25 11:23 | disposition home or self-care (01) | DRG 282 ==
LOC: ER 03:56 → MS 03:56
PROVIDERS: Internal Medicine; Admitting Provider Internal Medicine; Emergency Provider Emergency Medicine; PCP Internal Medicine; Visit Provider Family Medicine
DX: K85.90 Acute pancreatitis without necrosis or infection, unspecified (principal); K86.1 Other chronic pancreatitis; I25.10 Atherosclerotic heart disease of native coronary artery without angina pectoris; E78.5 Hyperlipidemia, unspecified; I50.22 Chronic systolic (congestive) heart failure; I73.9 Peripheral vascular disease, unspecified; E87.6 Hypokalemia; K59.00 Constipation, unspecified; T40.605A Adverse effect of unspecified narcotics, initial encounter; N39.0 Urinary tract infection, site not specified; E87.1 Hypo-osmolality and hyponatremia; I10 Essential (primary) hypertension; F17.200 Nicotine dependence, unspecified, uncomplicated; F10.10 Alcohol abuse, uncomplicated; I25.2 Old myocardial infarction; M54.2 Cervicalgia; G89.29 Other chronic pain; Z95.1 Presence of aortocoronary bypass graft; Z98.890 Other specified postprocedural states; Z87.19 Personal history of other diseases of the digestive system; Z95.828 Presence of other vascular implants and grafts; Z90.89 Acquired absence of other organs; Z79.899 Other long term (current) drug therapy; Z79.82 Long term (current) use of aspirin; Z79.02 Long term (current) use of antithrombotics/antiplatelets
CPT/HCPCS: 0202U; 36415; 51798; 74177; 76770; 80053; 80061; 81001; 83690; 85025; 94761; 96365; 96366; 96372; 96375; 96376; 99285; G0378; J1170; Q3014; Q9967

== ENCOUNTER 2023-09-24 11:10 | Emergency (ER) | payer MEDICAID, SELFPAY ==
[2023-09-24] VITALS (19 sets, daily range): BP systolic 118–157; BP diastolic 57–86; PULSE 74–98; RESP 13–25; TEMP 36.6; O2SAT 84–100; BMI 23.1
--- NOTE | 2023-09-24 11:21 | US_ITS ---
The [address] [address] Patient Name: CHARLES ROBERSON MRN: [id number] date: 1965 Sex: M Assigned Patient Location: ER Current Patient Location: ER Accession/Order Number: [id number] Exam Date: 09/24/2023 11:22 Report Date: 09/24/2023 13:09 At the request of: LEON PINK Procedure: US arterial duplex LE LT EXAMINATION: US arterial duplex LE LT HISTORY: left leg pain COMPARISON: No relevant comparison available. TECHNIQUE: Color duplex Doppler ultrasound evaluation analysis was performed in the usual manner. FINDINGS: Prior femoral-popliteal artery bypass graft is patent without significant narrowing. 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 Normal triphasic waveform within the proximal and mid aspect of the bypass graft; monophasic waveform distally. Monophasic waveform within the posterior artery. No flow within the anterior tibial artery. US/US arterial duplex LE LT IMPRESSION: 1. Prior left femoral-popliteal artery bypass graft which remains patent. 2. Patent posterior tibial arteries with diminished monophasic waveform. 3. Occluded anterior tibial artery with no appreciable flow. 4. Trace amount of flow within the [place] femoral artery. 5. Previously clotted pseudoaneurysm arising along the bypass graft versus seroma. Electronically authenticated by: DAISY BELLAMY Date: 09/24/2023 13:09
--- NOTE | 2023-09-24 11:21 | US_ITS ---
The [place] [id number] Patient Name: CHARLES ROBERSON MRN: [id number] date: 1965 Sex: M Assigned Patient Location: ER Current Patient Location: ER Accession/Order Number: [id number] Exam Date: 09/24/2023 11:22 Report Date: 09/24/2023 13:04 At the request of: LEON PINK Procedure: US venous doppler LE LT EXAMINATION: US venous doppler LE LT HISTORY: left leg pain , swelling, redness COMPARISON: No relevant comparison available. FINDINGS: REGION: Left lower extremity THROMBI: None. COMPRESSIBILITY: Limited compressibility. FLOW: Normal waveform and antegrade flow between 5 and 20 cm/s. OTHER: Subcutaneous edema. US/US venous doppler LE LT IMPRESSION: 1. Patent left lower extremity veins with no appreciable deep vein thrombus. 2. Limited ability to compress the veins due to soft tissue swelling, erythema, and pain. Electronically authenticated by: DAISY BELLAMY Date: 09/24/2023 13:04
--- NOTE | 2023-09-24 11:41 | XR_ITS ---
The [address] [address] Patient Name: CHARLES ROBERSON MRN: [id number] date: 1965 Sex: M Assigned Patient Location: ER Current Patient Location: ER Accession/Order Number: [id number] Exam Date: 09/24/2023 11:52 Report Date: 09/24/2023 12:06 At the request of: LEON PINK Procedure: XR chest 1V EXAMINATION: XR chest 1V HISTORY: sepsis COMPARISON: XR chest 03/28/2023 FINDINGS: LUNGS: No significant pulmonary parenchymal abnormalities. VASCULATURE: No increased pulmonary vasculature. PLEURA: No pneumothorax, effusion, or pleural thickening. CARDIAC: No cardiomegaly or cardiac silhouette abnormality. MEDIASTINUM: Prior sternotomy. No abnormal widening. BONES: No fracture or visible bone lesion. OTHER: Loop recorder projecting over left hemithorax. XR/XR chest 1V IMPRESSION: 1. No acute cardiopulmonary process. Stable chest. Electronically authenticated by: DAISY BELLAMY Date: 09/24/2023 12:06
--- NOTE | 2023-09-24 11:41 | ECG_ITS ---
The [facility] Test Date: 2023-09-24 Pat Name: CHARLES ROBERSON Department: Room: - Gender: Male Patient Support Assistant: : 1965 Requested By: SHAIKH MICHELLE Order Number: [id number] Reading MD: IAM ALONSO Measurements Intervals [place] Rate: 88 P: 78 WA: 130 QRS: 39 QRSD: 84 T: 34 QT: 378 QTc: 423 Interpretive Statements 1100 Sinus rhythm 2420 RSR (QR) in lead V1/V2, consistent with right ventricular conduction delay [address] depression 6220 Possible left atrial enlargement 9130 borderline ECG No change from prevous tracing of 10/30/22 Electronically Signed On 09-25-2023 7:29:28 EDT by IAM ALONSO
--- NOTE | 2023-09-24 11:51 | ED_ITS ---
HPI - General Adult General Chief complaint: Extremity Problem, Nontraumatic Stated complaint: L LEG/FOOT PAIN & SWELLING Time Seen by Provider: 09/24/23 11:21 Source: patient Mode of arrival: ambulance History of Present Illness HPI narrative: Patient is a 57-year-old male who is presenting to the ER by EMS with a chief complaint of severe pain to his left lower extremity, red, hot, swollen, firm proximal left thigh. Patient has almost circumferential redness to his right thigh, it is firm, no signs of compartment syndrome at this time. Patient does have a Doppler pedal pulse to the left foot. Patient has no fever. Patient has felt chilled, patient is slightly shaking secondary to chills and pain. No chest pain or shortness of breath. No abdominal pain, nausea or vomiting. Patient had surgery on September 14 at [facility] with Dr. Dalton Del Castillo, patient had a left extensive femoropopliteal bypass from his left femoral down to his left posterior tibial bypass. Patient was using a walker to ambulate after surgery. Patient is been having a hard time walking his left leg and putting any pressure to the left leg, especially yesterday and today. Patient says that this has been getting more red, swollen and painful only in the last 2 days. Patient's leg is impressive, questioning whether this is only been going on for 2 days versus a possible week if not more. Patient states he feels like his testicles are getting squeezed, this is because of the swelling to the left thigh, not because patient is having any pain to the penis or testicles. Patient looks very uncomfortable. Sepsis measures are in place. All systems are negative except as noted/marked. All systems reviewed and otherwise negative. Nurses note and vital signs reviewed and patient is not hypoxic. General: The patient appears in severe pain secondary to his left leg swelling, redness, possible infection. Patient is resting very uncomfortably on cart. Patient is not toxic, lethargic, or listless Skin: Patient has significant redness to the medial aspect of his surgical incision going down to his posterior thigh, almost circumferential. This is extending and covering most of his left thigh. Patient surgical incision to his left groin is clean, dry, intact. All surgical incisions to his left leg are clean, dry, intact. Patient has firmness to his left medial aspect of his thigh, severe tenderness to palpation, patient is having pain, pulses are dopplered to left medial, patient has no paresthesias distally, no temperature changes, no color change raised to distal left leg besides redness to the skin. Patient also has redness to the medial aspect of his distal lacerations, medial aspect of his left thigh, above his knee. Patient has diffuse pain to palpation to the posterior aspect of the left posterior thigh, popliteal fossa. Patient has some redness around his surgical incision to the left calf, no significant swelling or rigidity to his left calf. Warm, dry, no pallor noted. There is no rash noted. No petechiae, purpura. Patient does have a area of approximately 8 x 5 cm of possible early necrosis versus dark ecchymosis to the left mid to proximal medial thigh Head: Normocephalic, atraumatic Eye: Normal conjunctiva, no drainage, EOMI. PERRL Ears, Nose, Mouth, and Throat: oral mucosa is moist. Nares patent. Mouth without vesicles. Cardiovascular: Regular Rate and Rhythm, no murmur, gallop, rub Respiratory: Patient is in no distress, no accessory muscle use, lungs are clear to auscultation, no wheezing, rales or rhonchi Back: non-tender, no CVA tenderness bilaterally to percussion. No CT LS midline pain GI: Obese, soft, no pulsatile mass, no tenderness to palpation, no masses appreciated. No rebound, guarding, or rigidity noted. No distention : Patient is circumcised, no tenderness to palpation to 2 descended testicles. No signs of any acute infection to the scrotum or perineal area. Redness from his left medial thigh does not appear to be spreading to his perineum. Musculoskeletal: Patient has full range of motion of all of the extremities except to his left lower leg, please see skin dictation. Patient does have a dopplerable pulse, left dorsalis pedal; no extensive signs of compartment syndrome to his left lower extremity besides the firmness and the pain to the left thigh. Is able to dorsal and plantarflex his left foot, causing pain to his left thigh, no sensation deficits to his left foot. Patient has slightly delayed cap refill in all 5 toes of his left foot. patient otherwise no motor, sensory, or focal neurological deficits Neurological: A&O x4, normal speech Psychiatric: Cooperative Related Data Home Medications Medication Instructions Recorded Confirmed amitriptyline 50 mg tablet 50 mg PO DAILY 03/28/23 09/24/23 aspirin 81 mg tablet,delayed 81 mg PO DAILY 03/28/23 09/24/23 release atorvastatin 80 mg tablet 80 mg PO DAILY 03/28/23 09/24/23 metoprolol succinate 50 mg 50 mg PO DAILY 03/28/23 09/24/23 tablet,extended release 24 hr sacubitril 24 mg-valsartan 26 mg 1 tab PO BID 03/28/23 09/24/23 tablet (Entresto) magnesium oxide 400 mg (241.3 mg 400 mg PO DAILY 05/21/23 09/24/23 magnesium) tablet oxycodone 5 mg tablet 5 mg PO Q6H PRN pain 09/24/23 09/24/23 potassium chloride 20 mEq 40 meq PO DAILY 09/24/23 09/24/23 tablet,extended release Previous Rx's Medication Instructions Recorded cephalexin 500 mg capsule 500 mg PO BID 7 days #14 caps 05/25/23 Allergies Allergy/AdvReac Type Severity Reaction Status Date / Time No Known Drug Allergies Allergy Verified 05/21/23 01:16 [facility] Medical History (Updated 09/24/23 @ 15:06 by Dalton Julian MD) Chronic systolic HF (heart failure) ?I50.22 - Chronic systolic (congestive) heart failure (ICD-10) Chronic pancreatitis ?K86.1 - Other chronic pancreatitis (ICD-10) PVD (peripheral vascular disease) ?I73.9 - Peripheral vascular disease, unspecified (ICD-10) HLD (hyperlipidemia) ?E78.5 - Hyperlipidemia, unspecified (ICD-10) CAD (coronary artery disease) ?I25.10 - Atherosclerotic heart disease of [place] coronary artery without angina pectoris (ICD-10) FH: CABG (coronary artery bypass surgery) ?Z82.49 - Family history of ischemic heart disease and other diseases of the circulatory system (ICD-10) Poor high blood pressure control ?I10 - Essential (primary) hypertension (ICD-10) Myocardial infarction ?I21.9 - Acute myocardial infarction, unspecified (ICD-10) Pancreatitis, acute ?K85.90 - Acute pancreatitis without necrosis or infection, unspecified (ICD- 10) Migraine ?G43.909 - Migraine, unspecified, not intractable, without status migrainosus (ICD-10) Acute neck pain ?M54.2 - Cervicalgia (ICD-10) Surgical History (Updated 03/29/23 @ 11:01 by Shaikh Jessika MD) H/O two vessel coronary artery bypass graft ?Z95.1 - Presence of aortocoronary bypass graft (ICD-10) History of tonsillectomy ?Z90.89 - Acquired absence of other organs (ICD-10) History of hernia repair ?Z98.890 - Other specified postprocedural states (ICD-10) ?Z87.19 - Personal history of other diseases of the digestive system (ICD-10) S/P femoral-popliteal bypass surgery ?Z95.828 - Presence of other vascular implants and grafts (ICD-10) Social History (Updated 05/21/23 @ 04:33 by Ashely Vizcaino RN) Within the past year, how often did you have a drink containing alcohol: 2-3 times a week Within the past year, how many standard drinks containing alcohol did you have on a typical day: 1 or 2 Within the past year, how often did you have six or more drinks on one occasion: never Total score: 0 Score interpretation: A score less than 4 is consistent with normal alcohol consumption. Smoking status: Current every day smoker Non-prescribed substance use: former substance user Non-prescribed substance use details: cocaine, meth Previous occupational history: [employer] Known occupational exposures/hazards: No Highest level of school completed/degree received: 10th grade Little interest or pleasure in doing things: not at all Feeling down, depressed, or hopeless: not at all Feel stressed/tense/nervous/anxious/difficulty sleeping: only a little Do you think of yourself as: straight/heterosexual Gender Identity: male Exam Constitutional Vital Signs, click to edit/add: Last Vital Signs Temp 97.9 F 09/24/23 11:13 Pulse 84 09/24/23 14:40 Resp 16 09/24/23 14:40 BP 127/69 09/24/23 14:30 Pulse Ox 99 09/24/23 14:40 O2 Del Method Room Air 09/24/23 11:13 Course Vital Signs Vital signs: Vital Signs Temperature 97.9 F 09/24/23 11:13 Pulse Rate 95 H 09/24/23 11:13 Respiratory Rate 24 09/24/23 11:13 Blood Pressure 150/82 H 09/24/23 11:13 Pulse Oximetry 95 09/24/23 11:13 Oxygen Delivery Method Room Air 09/24/23 11:13 Temperature 97.9 F 09/24/23 11:13 Pulse Rate 84 09/24/23 14:40 Respiratory Rate 16 09/24/23 14:40 Blood Pressure 127/69 09/24/23 14:30 Pulse Oximetry 99 09/24/23 14:40 Oxygen Delivery Method Room Air 09/24/23 11:13 Medical Decision Making MDM Narrative Medical decision making narrative: Patient had most likely a femoropopliteal bypass on his left leg on September [address] Dalton Banerjee. Patient has been taking oxycodone 5 mg tablets every 8 hours for pain. Patient has a history of peripheral vascular disease, patient has been using a walker to try to ambulate since surgery but the last 2 or 3 days he is not able to put any weight on his left leg. Patient has had a aortogram, angiogram, and a left femoral to posterior tibial bypass. Discharge instructions were reviewed that were faxed over from [facility]. [address] Del Castillo, patient's vascular surgeon from [facility]. He recommended no other further testing is needed, send the patient over to [facility], admit to the hospitalist, and he will see the patient when the patient arrives and take over treatment. Patient has already been getting a ultrasound looking at the arteries and the veins. We have a call into the hospitalist from [facility] for transfer. Patient will remain NPO. 1245 I spoke to the hospitalist from [facility], Dr. Muñoz. He is accepting of the patient, and knows that Dr. Del Castillo is in consultation and will be seeing the patient today as well. Another dose of IV morphine 8 mg to be given to the patient prior to transfer. 1330 patient's pain is improved, patient was helped to urinate. Patient was updated on me speaking to the vascular surgeon, Dr. Bang and also speaking to the medical hospitalist who will be admitting the patient as well, Dr. Muñoz. Patient will be given a dose of morphine prior to discharge. Patient has a lactic acid of 3.5, patient was given prophylactic Zosyn and vancomycin. Patient does have occlusion of the anterior tibial artery. I did speak to Dr. Del Castillo again at 1500, he is aware of transfer at 3:30 PM. He also recommend no other medications at this time. 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 Dr Flores says that Patient does have a left posterior tibial artery, but the occlusion is chronic. I did read the impression of the ultrasound arterial, he is aware of the report and has no other recommendations at this time. 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 Critical care time 45 minutes exclusive from separate billable procedures that were performed. The following was considered in the determination of critical care but not limited to the level of medical decision making, intensive cardiac and/or respiratory monitoring, frequent vital sign monitoring, evaluation of laboratory studies, evaluation of radiographic studies, oxygen monitoring, and constant monitoring and speaking to family at bedside Lab Data Lab results reviewed: Yes I reviewed the patient's lab results Labs: Lab Results 09/24/23 09/24/23 09/24/23 Range/Units 11:41 12:12 12:28 WBC 7.0 (4.0-11.0) 10^3/uL RBC 4.56 L (4.70-6.10) 10^6/uL Hgb 13.5 L (14.0-18.0) g/dL Hct 41.6 L (42.0-54.0) % MCV 91.2 (80.0-94.0) fL MCH 29.6 (25.9-34.0) pg MCHC 32.5 (29.9-35.2) g/dL RDW 12.9 (11.0-15.0) % Plt Count 324 (150-450) 10^3/uL MPV 9.4 L (9.5-13.5) fL Neut % (Auto) 74.5 (43.0-75.0) % Lymph % (Auto) 17.1 L (20.5-60.0) % [place] % (Auto) 6.6 (1.7-12.0) % Eos % (Auto) 1.0 (0.9-7.0) % Baso % (Auto) 0.4 (0.2-2.0) % Neut # (Auto) 5.2 (1.4-6.5) 10^3/uL Lymph # (Auto) 1.2 (1.2-3.8) 10^3/uL [place] # (Auto) 0.5 (0.3-0.8) 10^3/uL Eos # (Auto) 0.1 (0.0-0.7) 10^3/uL Baso # (Auto) 0.0 (0.0-0.1) 10^3/uL Abs Immat Gran (auto) 0.03 (0.00-0.03) 10^3/uL Imm/Tot Granulo (auto) 0.4 (0.0-0.5) % PT 11.1 (9.0-11.6) sec INR 1.05 APTT 30.2 (22.3-36.2) sec VBG pH 7.527 H (7.330-7.430) VBG pCO2 31.3 L (40.0-52.0) mmHg Sodium 132 L (136-145) mmol/L Potassium 3.8 (3.5-5.1) mmol/L Chloride 95 L (98-107) mmol/L Carbon Dioxide 25.0 (21.0-32.0) mmol/L Anion Gap 15.8 BUN 6.0 L (7.0-18.0) mg/dL Creatinine 0.78 (0.70-1.30) mg/dL Est GFR ( Amer) >60 (>=60) Est GFR (Non-Af Amer) >60 (>=60) BUN/Creatinine Ratio 7.7 Glucose 112 H (74-106) mg/dL Lactate 3.5 H* (0.4-2.0) mmol/L Calcium 9.0 (8.5-10.1) mg/dL Magnesium 1.9 (1.8-2.4) mg/dL Total Bilirubin 1.2 H (0.2-1.0) mg/dL AST 13 L (15-37) U/L ALT <6 L (16-63) U/L Alkaline Phosphatase 87 (46-116) U/L Troponin I High Sens 8.1 (4.0-76.1) pg/mL Total Protein 6.8 (6.4-8.2) g/dL Albumin 2.3 L (3.4-5.0) g/dL Globulin 4.5 g/dL Albumin/Globulin Ratio 0.5 Procalcitonin <0.05 (0.00-0.50) ng/mL Urine Color Lt. yellow (YELLOW) Urine Clarity Clear (CLEAR) Urine pH 7.0 (5.0-9.0) Ur Specific [place] <=1.005 A (1.005-1.025) Urine Protein Negative (NEG/TRACE) mg/dL Urine Glucose (UA) Negative (NEGATIVE) mg/dL Urine Ketones 15 A (NEGATIVE) mg/dL Urine Occult Blood Negative (NEGATIVE) Urine Nitrite Negative (NEGATIVE) Urine Bilirubin Negative (NEGATIVE) Urine Urobilinogen 1.0 (0.2-1.0) EU/dL Ur Leukocyte Esterase Negative (NEGATIVE) Blood Type O Positive Antibody Screen Negative ECG Data Attestation: I personally reviewed and interpreted this ECG as follows: (EKG interpretation. Normal sinus rhythm at 88 beats a minute. Normal axis deviation. Artifact noted. QTc of 423.) Discharge Plan Discharge Chief Complaint: Extremity Problem, Nontraumatic Clinical Impression: Leg edema, Lower extremity edema, Postop check, Leg pain, left, Cellulitis of left leg Patient Disposition: [facility] Time of Disposition Decision: 12:30 Discharge Location: [facility] Discharge location: [facility], Dr Del Castillo in consultation. Condition: Serious Mode of Transportation: EMS
[2023-09-24 11:53] LABS: Basophils Percent Auto 0.4 % (0.2-2.0); Eosinophils Absolute Auto 0.1 10^3/uL (0.0-0.7); Hematocrit 41.6 % (42.0-54.0); Hemoglobin 13.5 g/dL (14.0-18.0); Immature Granulocytes Abs Auto 0.03 10^3/uL (0.00-0.03); Immature Granulocytes Pct Auto 0.4 % (0.0-0.5); Lymphocytes Absolute Auto 1.2 10^3/uL (1.2-3.8); Lymphocytes Percent Auto 17.1 % (20.5-60.0); Mean Corpuscular HGB Conc 32.5 g/dL (29.9-35.2); Mean Corpuscular Hemoglobin 29.6 pg (25.9-34.0); Mean Corpuscular Volume 91.2 fL (80.0-94.0); Mean Platelet Volume 9.4 fL (9.5-13.5); Monocytes Absolute Auto 0.5 10^3/uL (0.3-0.8); Monocytes Percent Auto 6.6 % (1.7-12.0); Neutrophils Absolute Auto 5.2 10^3/uL (1.4-6.5); Neutrophils Percent Auto 74.5 % (43.0-75.0); PCO2 VBG 31.3 mmHg (40.0-52.0); Platelet Count 324 10^3/uL (150-450); Red Blood Count 4.56 10^6/uL (4.70-6.10); Red Cell Distribution Width 12.9 % (11.0-15.0); pH VBG 7.527 (7.330-7.430)
[2023-09-24] MEDS: ONDANSETRON PF 4 MG/2 ML VIAL IV (11:56)
[2023-09-24] MEDS: LACTATED RINGER'S SOLUTION 1,000 ML 999 ML IV (11:57)
[2023-09-24] MEDS: HYDROMORPHONE HCL 1 MG/ML CARTRIDGE IV (11:57)
[2023-09-24] MEDS: MORPHINE SULFATE 4 MG/ML VIAL IV ×2 (12:11→15:00)
[2023-09-24 12:13] LABS: Alanine Aminotransferase <6 U/L (16-63); Albumin Globulin Ratio 0.5; Albumin Level 2.3 g/dL (3.4-5.0); Alkaline Phosphatase 87 U/L (46-116); Anion Gap 15.8; Aspartate Amino Transferase 13 U/L (15-37); BUN Creatinine Ratio 7.7; Bilirubin Total 1.2 mg/dL (0.2-1.0); Chloride 95 mmol/L (98-107); Estimated GFR (African America >60 (>=60); Estimated GFR (Non-African Ame >60 (>=60); Globulin 4.5 g/dL; Glucose 112 mg/dL (74-106); Potassium 3.8 mmol/L (3.5-5.1); Sodium 132 mmol/L (136-145); Total Protein 6.8 g/dL (6.4-8.2)
[2023-09-24 12:14] LABS: INR 1.05; Partial Thromboplastin Time 30.2 sec (22.3-36.2); Prothrombin Time 11.1 sec (9.0-11.6)
[2023-09-24] MEDS: PIPERACILLIN SODIUM/TAZOBACTAM 4.5 GM in 0.9 % SODIUM CHLORIDE 50 ML IV (12:15)
[2023-09-24 12:20] LABS: Magnesium 1.9 mg/dL (1.8-2.4); Troponin I High Sensitivity 8.1 pg/mL (4.0-76.1)
[2023-09-24 12:21] LABS: Lactate/Lactic Acid 3.5 mmol/L (0.4-2.0)
[2023-09-24 12:40] LABS: Bilirubin Urine NEGATIVE (NEGATIVE); Blood Urine NEGATIVE (NEGATIVE); Clarity Urine CLEAR (CLEAR); Color Urine LT. YELLOW (YELLOW); Glucose Urine UA NEGATIVE (NEGATIVE); Ketones Urine 15 mg/dL (NEGATIVE); Leukocyte Esterase Urine NEGATIVE (NEGATIVE); Nitrite Urine NEGATIVE (NEGATIVE); Protein Urine NEGATIVE (NEG/TRACE); Specific Gravity Urine <=1.005 (1.005-1.025)
[2023-09-24] MEDS: VANCOMYCIN HCL 1,250 MG in 0.9 % SODIUM CHLORIDE 250 ML 166.667000000000002 MG IV (12:41)
[2023-09-24 12:46] LABS: Urine Microscopic Indicated NO
[2023-09-24 12:50] LABS: PROCALCITONIN <0.05 ng/mL (0.00-0.50)
[2023-09-24 15:05] LABS: Lactate/Lactic Acid 0.9 mmol/L (0.4-2.0)
== END 2023-09-24 15:29 | disposition short-term general hospital (02) ==
PROVIDERS: Emergency Provider Emergency Medicine; PCP Internal Medicine
DX: M79.605 Pain in left leg (principal); L03.116 Cellulitis of left lower limb; R60.0 Localized edema; I50.22 Chronic systolic (congestive) heart failure; I73.9 Peripheral vascular disease, unspecified; E78.5 Hyperlipidemia, unspecified; I25.10 Atherosclerotic heart disease of native coronary artery without angina pectoris; E66.9 Obesity, unspecified; I25.2 Old myocardial infarction; Z95.1 Presence of aortocoronary bypass graft; Z79.82 Long term (current) use of aspirin; Z79.899 Other long term (current) drug therapy; Z95.828 Presence of other vascular implants and grafts; Z98.890 Other specified postprocedural states; F17.210 Nicotine dependence, cigarettes, uncomplicated; Z68.23 Body mass index [BMI] 23.0-23.9, adult
CPT/HCPCS: 36415; 71045; 80053; 81003; 82800; 83605; 83735; 84145; 84484; 85025; 85610; 85730; 86850; 86900; 86901; 87040; 93005; 93926; 93971; 96365; 96366; 96367; 96375; 96376; 99285; J1170; J3370

== ENCOUNTER 2023-10-07 07:24 | Outpatient (RCR) | payer MEDICAID, SELFPAY ==
[2023-10-07 10:46] VITALS: BP 137/80; PULSE 79; RESP 18; TEMP 37.2; O2SAT 97
[2023-10-07 10:48] LABS: C Reactive Protein 0.58 mg/dL (<=0.50); Estimated GFR (African America >60 (>=60); Estimated GFR (Non-African Ame >60 (>=60)
--- NOTE | 2023-10-07 10:48 | PC.NURSE ---
0958: Pt. to [facility] amb. Seated in recliner. VSS. PICC line in place to right arm. Flushes easily with good blood return. Blood obtained for ordered labs. Using sterile technique, PICC line dressing changed at this time. No redness or edema to site. Sterile CHG dressng applied. New caps applied. Pt. tolerated wtihout c/o. 1018: Pt. d/c'd amb. to home.
== END 2023-10-10 23:59 | disposition home or self-care (01) ==
LOC: INF 07:24
PROVIDERS: PCP Internal Medicine; Visit Provider Internal Medicine Infectious Disease
DX: T81.40XA Infection following a procedure, unspecified, initial encounter (principal)
CPT/HCPCS: 36592; 82565; 86140

== ENCOUNTER 2023-10-07 07:29 | Outpatient (RCR) | payer MEDICAID, SELFPAY | END 2023-10-07 07:44 | disposition home or self-care (01) | LOC: INF 07:29 | PROVIDERS: PCP Internal Medicine; Visit Provider Internal Medicine Infectious Disease | DX: T81.40XA Infection following a procedure, unspecified, initial encounter (principal) ==

== ENCOUNTER 2023-10-25 10:11 | Emergency (ER) | payer MEDICAID, SELFPAY ==
[2023-10-25 10:13] VITALS: BP 151/90; PULSE 77; TEMP 37.2; O2SAT 100; BMI 22.4
[2023-10-25 10:32] VITALS: PULSE 80
--- NOTE | 2023-10-25 10:37 | US_ITS ---
The [address] [address] Patient Name: CHARLES ROBERSON MRN: [id number] date: 1965 Sex: M Assigned Patient Location: ER Current Patient Location: ER Accession/Order Number: [id number] Exam Date: 10/25/2023 10:45 Report Date: 10/25/2023 12:29 At the request of: MAXINE BARONE Procedure: US arterial duplex LE LT EXAMINATION: US arterial duplex LE LT HISTORY: Pain and swelling, recent bypass COMPARISON: 09/24/2023 TECHNIQUE: Color duplex Doppler ultrasound evaluation analysis was performed in the usual manner. FINDINGS: Flow identified in the left iliac, common femoral and deep femoral arteries. There is occlusion of the femoral artery Patent femoropopliteal bypass graft. Flow identified in the posterior tibial artery. Markedly diminished flow in the anterior tibial artery with spectral broadening and delayed systolic upstroke but not occlusion US/US arterial duplex LE LT IMPRESSION: Occlusion of the [place] femoral artery Patent femoral popliteal bypass graft Severe ischemic waveform anterior tibial artery without occlusion Electronically authenticated by: URIAH MAHARAJ Date: 10/25/2023 12:29
--- NOTE | 2023-10-25 10:37 | US_ITS ---
The [place] [id number] Patient Name: CHARLES ROBERSON MRN: [id number] date: 1965 Sex: M Assigned Patient Location: ER Current Patient Location: Accession/Order Number: [id number] Exam Date: 10/25/2023 10:45 Report Date: 10/25/2023 12:13 At the request of: MAXINE BARONE Procedure: US venous doppler LE LT Ultrasound venous duplex scan left lower extremity CLINICAL: Left leg pain for 2 days. TECHNIQUE: Lane-scale, color Doppler and Duplex examination of the left lower extremity was performed with and without provocative maneuvers. FINDINGS: Comparison: 09/24/2023 Sonographic examination of the left lower extremity deep venous system to include the common femoral, superficial femoral and popliteal veins, demonstrates normal compressibility, color-flow, respiratory variation, and augmentation. The proximal greater saphenous vein not visualized and compatible with harvest for bypass surgery.. There is normal compressibility of the peroneal and posterior tibial veins. There is normal compressibility of the small saphenous vein. There is a noncompressibility of the proximal to mid anterior accessory saphenous vein compatible with superficial thrombus. Distal greater saphenous vein demonstrates normal compressibility. US/US venous doppler LE LT IMPRESSION: 1. Negative for deep venous thrombosis in the left lower extremity. 2. Positive for superficial venous thrombus in the proximal to mid anterior accessory saphenous vein in the left calf. Electronically authenticated by: MATT BANSAL Date: 10/25/2023 12:13
--- NOTE | 2023-10-25 10:40 | ED_ITS ---
HPI - Extremity Problem General Chief complaint: Extremity Problem, Nontraumatic Stated complaint: LOWER EXTREMITY PAIN, LEFT Time Seen by Provider: 10/25/23 10:27 Source: patient Mode of arrival: ambulance History of Present Illness HPI Narrative: 57-year-old male presents to the emergency department for pain and swelling in his left thigh. A few weeks ago he had vascular leg bypass surgery in the left leg in [place]. Over the past few days he has noticed increasing pain and swelling. He does not complain of numbness or weakness in his foot. He was worried about an infection. Related Data Home Medications ?Medication ?Instructions ?Recorded ?Confirmed amitriptyline 50 mg tablet 50 mg PO DAILY 03/28/23 10/25/23 aspirin 81 mg tablet,delayed 81 mg PO DAILY 03/28/23 10/25/23 release atorvastatin 80 mg tablet 80 mg PO DAILY 03/28/23 10/25/23 metoprolol succinate 50 mg 50 mg PO DAILY 03/28/23 10/25/23 tablet,extended release 24 hr sacubitril 24 mg-valsartan 26 mg 1 tab PO BID 03/28/23 10/25/23 tablet (Entresto) magnesium oxide 400 mg (241.3 mg 400 mg PO DAILY 05/21/23 10/25/23 magnesium) tablet oxycodone 5 mg tablet 5 mg PO Q6H PRN pain 09/24/23 10/25/23 potassium chloride 20 mEq 40 meq PO DAILY 09/24/23 10/25/23 tablet,extended release Previous Rx's ?Medication ?Instructions ?Recorded oxycodone 5 mg tablet 5 mg PO Q6H PRN pain 5 days #20 10/25/23 tabs Allergies Allergy/AdvReac Type Severity Reaction Status Date / Time No Known Drug Allergies Allergy Verified 05/21/23 01:16 Review of Systems ROS Narrative A ten point review of systems is negative except as noted above. [facility] Medical History (Updated 10/25/23 @ 13:38 by Gene Chan MD) Chronic systolic HF (heart failure) ?I50.22 - Chronic systolic (congestive) heart failure (ICD-10) Chronic pancreatitis ?K86.1 - Other chronic pancreatitis (ICD-10) PVD (peripheral vascular disease) ?I73.9 - Peripheral vascular disease, unspecified (ICD-10) HLD (hyperlipidemia) ?E78.5 - Hyperlipidemia, unspecified (ICD-10) CAD (coronary artery disease) ?I25.10 - Atherosclerotic heart disease of [place] coronary artery without angina pectoris (ICD-10) FH: CABG (coronary artery bypass surgery) ?Z82.49 - Family history of ischemic heart disease and other diseases of the circulatory system (ICD-10) Poor high blood pressure control ?I10 - Essential (primary) hypertension (ICD-10) Myocardial infarction ?I21.9 - Acute myocardial infarction, unspecified (ICD-10) Pancreatitis, acute ?K85.90 - Acute pancreatitis without necrosis or infection, unspecified (ICD- 10) Migraine ?G43.909 - Migraine, unspecified, not intractable, without status migrainosus (ICD-10) Acute neck pain ?M54.2 - Cervicalgia (ICD-10) Surgical History (Updated 03/29/23 @ 11:01 by Shaikh Jessika MD) H/O two vessel coronary artery bypass graft ?Z95.1 - Presence of aortocoronary bypass graft (ICD-10) History of tonsillectomy ?Z90.89 - Acquired absence of other organs (ICD-10) History of hernia repair ?Z98.890 - Other specified postprocedural states (ICD-10) ?Z87.19 - Personal history of other diseases of the digestive system (ICD-10) S/P femoral-popliteal bypass surgery ?Z95.828 - Presence of other vascular implants and grafts (ICD-10) Social History (Updated 05/21/23 @ 04:33 by Ashely Vizcaino RN) Within the past year, how often did you have a drink containing alcohol: 2-3 times a week Within the past year, how many standard drinks containing alcohol did you have on a typical day: 1 or 2 Within the past year, how often did you have six or more drinks on one occasion: never Total score: 0 Score interpretation: A score less than 4 is consistent with normal alcohol consumption. Smoking status: Current every day smoker Non-prescribed substance use: former substance user Non-prescribed substance use details: cocaine, meth Previous occupational history: [employer] Known occupational exposures/hazards: No Highest level of school completed/degree received: 10th grade Little interest or pleasure in doing things: not at all Feeling down, depressed, or hopeless: not at all Feel stressed/tense/nervous/anxious/difficulty sleeping: only a little Do you think of yourself as: straight/heterosexual Gender Identity: male Exam Narrative Exam Narrative: Nurses note and vital signs reviewed and patient is not hypoxic. General: The patient appears well and in no apparent distress. Patient is resting comfortably on cart. Skin: Warm, dry, no pallor noted. There is no rash noted. Head: Normocephalic, atraumatic Eye: Normal conjunctiva, no drainage Ears, Nose, Mouth, and Throat: oral mucosa is moist. Nares patent. Cardiovascular: Regular Rate and Rhythm Respiratory: Patient is in no distress, no accessory muscle use, lungs are clear to auscultation, no wheezing, rales or rhonchi Back: non-tender GI: Soft and nontender Musculoskeletal: Surgical wounds on the left leg are healing well, no dehiscence or surrounding erythema. There is tenderness and firmness in the left upper inner thigh. Dorsalis pedis pulse 2+. Neurological: A&O, normal speech Psychiatric: Cooperative Constitutional Vital Signs, click to edit/add: Last Vital Signs Temp 99.0 F 10/25/23 10:13 Pulse 72 10/25/23 12:22 Resp 16 10/25/23 12:22 BP 132/74 10/25/23 12:22 Pulse Ox 99 10/25/23 12:22 O2 Del Method Room Air 10/25/23 12:22 Course Vital Signs Vital signs: Vital Signs Temperature 99.0 F 10/25/23 10:13 Pulse Rate 77 10/25/23 10:13 Respiratory Rate 16 10/25/23 10:13 Blood Pressure 151/90 H 10/25/23 10:13 Pulse Oximetry 100 10/25/23 10:13 Oxygen Delivery Method Room Air 10/25/23 10:13 Temperature 99.0 F 10/25/23 10:13 Pulse Rate 72 10/25/23 12:22 Respiratory Rate 16 10/25/23 12:22 Blood Pressure 132/74 10/25/23 12:22 Pulse Oximetry 99 10/25/23 12:22 Oxygen Delivery Method Room Air 10/25/23 12:22 MDM - Extremity (Nontraumatic) MDM Narrative Medical decision making narrative: WBC is normal and he is already on IV antibiotics at home through a PICC line. Venous duplex and arterial scans are as expected in the postoperative state. No acute occlusion or DVT. I have discussed the case with his vascular surgeon and follow-up is arranged. He was provided a prescription for oxycodone. Treatment diagnosis and follow-up were discussed with the patient. I do not have a clinical suspicion for worsening infection. Differential Diagnosis Differential diagnosis: Likely other (Superficial thrombophlebitis, DVT, arterial occlusion) Lab Data Attestation: I reviewed the patient's lab results. Labs: Lab Results 10/25/23 Range/Units 10:59 WBC 5.5 (4.0-11.0) 10^3/uL RBC 4.26 L (4.70-6.10) 10^6/uL Hgb 12.5 L (14.0-18.0) g/dL Hct 40.4 L (42.0-54.0) % MCV 94.8 H (80.0-94.0) fL MCH 29.3 (25.9-34.0) pg MCHC 30.9 (29.9-35.2) g/dL RDW 15.2 H (11.0-15.0) % Plt Count 153 (150-450) 10^3/uL MPV 9.0 L (9.5-13.5) fL Neut % (Auto) 67.4 (43.0-75.0) % Lymph % (Auto) 21.3 (20.5-60.0) % [place] % (Auto) 8.2 (1.7-12.0) % Eos % (Auto) 2.2 (0.9-7.0) % Baso % (Auto) 0.7 (0.2-2.0) % Neut # (Auto) 3.7 (1.4-6.5) 10^3/uL Lymph # (Auto) 1.2 (1.2-3.8) 10^3/uL [place] # (Auto) 0.5 (0.3-0.8) 10^3/uL Eos # (Auto) 0.1 (0.0-0.7) 10^3/uL Baso # (Auto) 0.0 (0.0-0.1) 10^3/uL Abs Immat Gran (auto) 0.01 (0.00-0.03) 10^3/uL Imm/Tot Granulo (auto) 0.2 (0.0-0.5) % Sodium 138 (136-145) mmol/L Potassium 3.5 (3.5-5.1) mmol/L Chloride 103 (98-107) mmol/L Carbon Dioxide 27.1 (21.0-32.0) mmol/L Anion Gap 11.4 BUN 5.0 L (7.0-18.0) mg/dL Creatinine 0.71 (0.70-1.30) mg/dL Est GFR ( Amer) >60 (>=60) Est GFR (Non-Af Amer) >60 (>=60) BUN/Creatinine Ratio 7.0 Glucose 107 H (74-106) mg/dL Calcium 9.1 (8.5-10.1) mg/dL Imaging Data Arterial ultrasound: Radiologist's impression: ITS Impressions Duplex Scan Lower Extremity Artery 10/25/23 10:37 IMPRESSION: Occlusion of the [place] femoral artery Patent femoral popliteal bypass graft Severe ischemic waveform anterior tibial artery without occlusion Electronically authenticated by: URIAH MAHARAJ Date: 10/25/2023 12:29 Venous Doppler Study 10/25/23 10:37 IMPRESSION: 1. Negative for deep venous thrombosis in the left lower extremity. 2. Positive for superficial venous thrombus in the proximal to mid anterior accessory saphenous vein in the left calf. Electronically authenticated by: MATT BANSAL Date: 10/25/2023 12:13 Discharge Plan Discharge Stand Alone Forms: Portal Instructions Chief Complaint: Extremity Problem, Nontraumatic Clinical Impression: Post-operative pain Patient Disposition: Home, Self-Care Time of Disposition Decision: 13:38 Condition: Good Mode of Transportation: Private Vehicle Prescriptions / Home Meds: New oxycodone 5 mg tablet 5 mg PO Q6H PRN (Reason: pain) 5 Days Qty: 20 0RF No Action amitriptyline 50 mg tablet 50 mg PO DAILY aspirin 81 mg tablet,delayed release (DR/EC) 81 mg PO DAILY atorvastatin 80 mg tablet 80 mg PO DAILY metoprolol succinate 50 mg tablet extended release 24 hr 50 mg PO DAILY Entresto 24-26 mg tablet 1 tab PO BID magnesium oxide 400 mg (241.3 mg magnesium) tablet 400 mg PO DAILY oxycodone 5 mg tablet 5 mg PO Q6H PRN (Reason: pain) potassium chloride 20 mEq tablet extended release 40 meq PO DAILY Print Language: Hebrew Instructions: Narcotic Safety (ED), Pain Management After Surgery (DC) Additional Instructions: Follow-up with your vascular surgeon Referrals: Shaikh Rosen MD [Primary Care Provider] - 1 week
[2023-10-25 11:18] LABS: Basophils Percent Auto 0.7 % (0.2-2.0); Eosinophils Absolute Auto 0.1 10^3/uL (0.0-0.7); Eosinophils Percent Auto 2.2 % (0.9-7.0); Hematocrit 40.4 % (42.0-54.0); Hemoglobin 12.5 g/dL (14.0-18.0); Immature Granulocytes Abs Auto 0.01 10^3/uL (0.00-0.03); Immature Granulocytes Pct Auto 0.2 % (0.0-0.5); Lymphocytes Absolute Auto 1.2 10^3/uL (1.2-3.8); Lymphocytes Percent Auto 21.3 % (20.5-60.0); Mean Corpuscular HGB Conc 30.9 g/dL (29.9-35.2); Mean Corpuscular Hemoglobin 29.3 pg (25.9-34.0); Mean Corpuscular Volume 94.8 fL (80.0-94.0); Monocytes Absolute Auto 0.5 10^3/uL (0.3-0.8); Monocytes Percent Auto 8.2 % (1.7-12.0); Neutrophils Absolute Auto 3.7 10^3/uL (1.4-6.5); Neutrophils Percent Auto 67.4 % (43.0-75.0); Platelet Count 153 10^3/uL (150-450); Red Blood Count 4.26 10^6/uL (4.70-6.10); Red Cell Distribution Width 15.2 % (11.0-15.0); White Blood Count 5.5 10^3/uL (4.0-11.0)
[2023-10-25 11:43] LABS: Anion Gap 11.4; Calcium 9.1 mg/dL (8.5-10.1); Carbon Dioxide 27.1 mmol/L (21.0-32.0); Chloride 103 mmol/L (98-107); Estimated GFR (African America >60 (>=60); Estimated GFR (Non-African Ame >60 (>=60); Glucose 107 mg/dL (74-106); Potassium 3.5 mmol/L (3.5-5.1); Sodium 138 mmol/L (136-145)
[2023-10-25] MEDS: MORPHINE SULFATE 4 MG/ML VIAL IV (12:18)
[2023-10-25 12:22] VITALS: BP 132/74; PULSE 72; O2SAT 99
[2023-10-25 14:00] VITALS: BP 128/76; PULSE 78; O2SAT 99
== END 2023-10-25 14:05 | disposition home or self-care (01) ==
PROVIDERS: Emergency Provider Emergency Medicine; PCP Internal Medicine
DX: M79.652 Pain in left thigh (principal); G89.18 Other acute postprocedural pain; I11.0 Hypertensive heart disease with heart failure; I50.22 Chronic systolic (congestive) heart failure; I73.9 Peripheral vascular disease, unspecified; E78.5 Hyperlipidemia, unspecified; I25.10 Atherosclerotic heart disease of native coronary artery without angina pectoris; I25.2 Old myocardial infarction; Z95.1 Presence of aortocoronary bypass graft; Z90.89 Acquired absence of other organs; Z79.82 Long term (current) use of aspirin; Z79.899 Other long term (current) drug therapy; Z98.890 Other specified postprocedural states; Z95.828 Presence of other vascular implants and grafts; F17.210 Nicotine dependence, cigarettes, uncomplicated
CPT/HCPCS: 36415; 80048; 85025; 93926; 93971; 96374; 99284

== ENCOUNTER 2023-10-28 07:38 | Outpatient (RCR) | payer MEDICAID, SELFPAY ==
[2023-10-15 13:32] LABS: C Reactive Protein 0.64 mg/dL (<=0.50); Estimated GFR (African America >60 (>=60); Estimated GFR (Non-African Ame >60 (>=60)
[2023-10-21 10:32] LABS: C Reactive Protein <0.50 mg/dL (<=0.50); Estimated GFR (African America >60 (>=60); Estimated GFR (Non-African Ame >60 (>=60)
[2023-10-21 10:37] VITALS: BP 136/88; PULSE 86; TEMP 36.7; O2SAT 95
--- NOTE | 2023-10-21 10:40 | PC.NURSE ---
0950 Arrival ambulatory. labs drawn from picc by kelli shultz rn, 1000 old picc dressing removed, under sterile technique, site cleansed with CHG. excellent blood return noted, 0 cm external catheter. site clear, no reddness edema or drainage at site. new stat lock, chg dressing, caps changed flushed both ports, chg caps applied. tolerated well.
== END 2023-11-09 23:59 | disposition home or self-care (01) ==
LOC: INF 07:38
PROVIDERS: PCP Internal Medicine; Visit Provider Internal Medicine Infectious Disease
DX: T81.40XA Infection following a procedure, unspecified, initial encounter (principal)
CPT/HCPCS: 36592; 82565; 86140

== ENCOUNTER 2024-01-26 13:57 | Emergency (ER) | payer MEDICAID, SELFPAY ==
[2024-01-26] VITALS (37 sets, daily range): BP systolic 137–167; BP diastolic 63–98; PULSE 64–95; O2SAT 97–100; BMI 21.8
--- NOTE | 2024-01-26 14:09 | CT_ITS ---
[address] [address] Patient Name: CHARLES ROBERSON MRN: [id number] date: 1965 Sex: M Assigned Patient Location: ER Current Patient Location: Accession/Order Number: [id number] Exam Date: 01/26/2024 14:50 Report Date: 01/26/2024 15:56 At the request of: JOSSUE REVELES Procedure: CT angio abd aorta runoff EXAMINATION: CT angio abd aorta runoff HISTORY: Left leg pain, hx of bypass 12 weeks ago COMPARISON: CT abdomen pelvis with contrast 05/21/2023 TECHNIQUE: After obtaining the patient's consent, CT images of the abdomen, pelvis, and lower extremities were obtained without and with non-ionic intravenous contrast material. Multi-planar reformatted/3-D images were created to optimize visualization of vascular anatomy. Dose reduction techniques were achieved by using automated exposure control and/or adjustment of mA and/or kV according to patient size and/or use of iterative reconstruction technique. FINDINGS: AORTA: 7 mm diameter endovascular stent 8.4 cm in length and is present within the lumen of the distal aorta with its distal end present/lodged within the proximal right common iliac artery. No flow within the stent or the right common iliac and external iliac arteries. Reconstitution of flow within the right common femoral artery via collateral circulation. Flow is present, though diminished throughout the right lower extremity. Moderate atherosclerotic narrowing of the right common femoral and proximal femoral arteries. ILIAC: See above. RIGHT LEG: See above. LEFT LEG: Patent left, and external iliac arteries with moderate-marked atherosclerotic narrowing of the external iliac artery. Patent common femoral and deep femoral artery. Complete occlusion of the femoral artery throughout its length, including the popliteal artery. Extremely minimal flow within calf arteries due to collateral flow. LUNG BASES: No visible pulmonary or pleural disease. LIVER: Fatty infiltration. BILIARY: Dilated common bile duct, but unremarkable gallbladder. PANCREAS: 3.9 cm pseudocyst within tail of pancreas. No abnormal duct dilation or inflammatory changes. SPLEEN: No enlargement or focal lesion. ADRENALS: No mass or enlargement. KIDNEYS: No mass, obstruction, or calcification. BOWEL/MESENTERY: No visible mass, obstruction, or bowel wall thickening. RETROPERITONEUM: No mass or adenopathy. PELVIC NODES: No adenopathy. URINARY BLADDER: No visible focal wall thickening, lesion, or calculus. PELVIC ORGANS: No visible mass. Pelvic organs appropriate for patient age. ABDOMINAL WALL: No mass or hernia. BONES: No bony lesion or fracture. OTHER: CT/CT angio abd aorta runoff IMPRESSION: 1. Complete occlusion of left leg femoral artery and popliteal artery, with very minimal flow suspected within calf arteries. 2. Complete occlusion of right common and external iliac arteries. There is flow within the common femoral artery and remainder of right leg secondary to collateral flow/reconstitution at level of common femoral artery. 3. A long narrow stent is present within the distal abdominal aorta with distal end lodged within the right common iliac artery of uncertain etiology or function. Correlate with expected outcome. Electronically authenticated by: DAISY BELLAMY Date: 01/26/2024 15:56
[2024-01-26 14:17] LABS: Basophils Percent Auto 0.3 % (0.2-2.0); Eosinophils Percent Auto 0.4 % (0.9-7.0); Hematocrit 38.4 % (42.0-54.0); Hemoglobin 12.2 g/dL (14.0-18.0); Immature Granulocytes Abs Auto 0.02 10^3/uL (0.00-0.03); Immature Granulocytes Pct Auto 0.3 % (0.0-0.5); Lymphocytes Absolute Auto 1.2 10^3/uL (1.2-3.8); Lymphocytes Percent Auto 18.5 % (20.5-60.0); Mean Corpuscular HGB Conc 31.8 g/dL (29.9-35.2); Mean Corpuscular Hemoglobin 28.8 pg (25.9-34.0); Mean Corpuscular Volume 90.6 fL (80.0-94.0); Mean Platelet Volume 9.5 fL (9.5-13.5); Monocytes Absolute Auto 0.5 10^3/uL (0.3-0.8); Monocytes Percent Auto 6.7 % (1.7-12.0); Neutrophils Absolute Auto 4.9 10^3/uL (1.4-6.5); Neutrophils Percent Auto 73.8 % (43.0-75.0); Platelet Count 196 10^3/uL (150-450); Red Blood Count 4.24 10^6/uL (4.70-6.10); Red Cell Distribution Width 13.3 % (11.0-15.0); White Blood Count 6.7 10^3/uL (4.0-11.0)
--- NOTE | 2024-01-26 14:17 | ED_ITS ---
HPI HPI - General Adult General Chief complaint: Extremity Problem, Nontraumatic Stated complaint: LOWER EXTREMITY PAIN Time Seen by Provider: 01/26/24 14:02 Source: patient Mode of arrival: Wheelchair Limitations: no limitations History of Present Illness HPI narrative: 58-year-old male presents to the emergency department with complaint of left calf pain. Onset about 3 days ago. Has some radiation to his foot, as well as, numbness and tingling in his foot. Patient with history of bypass surgery in [place] about 12 weeks ago. Pain has been progressively worsening to where he cannot bear weight on the leg. Denies any chest pain, shortness cough, fever, chills. Quality:? hurts Severity:?severe Timing:?as above, constant, worsening Context: Normal setting and activity? Modifying factors:?pain worse with bearing weight, palpation Associated symptoms: numbness and tingling Related Data Home Medications ?Medication ?Instructions ?Recorded ?Confirmed amitriptyline 50 mg tablet 50 mg PO DAILY 03/28/23 01/26/24 aspirin 81 mg tablet,delayed 81 mg PO DAILY 03/28/23 01/26/24 release atorvastatin 80 mg tablet 80 mg PO DAILY 03/28/23 01/26/24 metoprolol succinate 50 mg 50 mg PO DAILY 03/28/23 01/26/24 tablet,extended release 24 hr sacubitril 24 mg-valsartan 26 mg 1 tab PO QDAY 03/28/23 01/26/24 tablet (Entresto) potassium chloride 20 mEq 40 meq PO DAILY 09/24/23 01/26/24 tablet,extended release clopidogrel 75 mg tablet 75 mg PO QDAY 01/26/24 01/26/24 duloxetine 30 mg capsule,delayed 30 mg PO QDAY 01/26/24 01/26/24 release gabapentin 300 mg capsule 600 mg PO Q8H 01/26/24 01/26/24 oxycodone 15 mg tablet 15 mg PO Q6H 01/26/24 01/26/24 trazodone 50 mg tablet 50 mg PO .qhs PRN insomnia 01/26/24 01/26/24 Allergies Allergy/AdvReac Type Severity Reaction Status Date / Time No Known Drug Allergies Allergy Verified 05/21/23 01:16 Opioid HPI Opioid Management Most Recent Opioid Data: Last Pain Scale 7 07/17/24 17:45 Last MAR Pain Assessment 01/26/24 17:42 Last ORT Total Score 6 05/21/23 04:55 Last ORT Risk Category Moderate Risk 05/21/23 04:55 Review of Systems ROS Narrative CONST: Denies fever, chills RESP: Denies shortness of breath CV: Denies chest pain GI: Denies abd pain, nausea, vomiting MS: + left calf pain. Denies back pain SKIN: + color change NEURO: + numbness, weakness PSYCHIATRIC: Denies confusion, agitation PFSH PFS Medical History (Updated 01/26/24 @ 17:19 by LELAND Garcia) Chronic systolic HF (heart failure) ?I50.22 - Chronic systolic (congestive) heart failure (ICD-10) Chronic pancreatitis ?K86.1 - Other chronic pancreatitis (ICD-10) PVD (peripheral vascular disease) ?I73.9 - Peripheral vascular disease, unspecified (ICD-10) HLD (hyperlipidemia) ?E78.5 - Hyperlipidemia, unspecified (ICD-10) CAD (coronary artery disease) ?I25.10 - Atherosclerotic heart disease of [place] coronary artery without angina pectoris (ICD-10) FH: CABG (coronary artery bypass surgery) ?Z82.49 - Family history of ischemic heart disease and other diseases of the circulatory system (ICD-10) Poor high blood pressure control ?I10 - Essential (primary) hypertension (ICD-10) Myocardial infarction ?I21.9 - Acute myocardial infarction, unspecified (ICD-10) Pancreatitis, acute ?K85.90 - Acute pancreatitis without necrosis or infection, unspecified (ICD- 10) Migraine ?G43.909 - Migraine, unspecified, not intractable, without status migrainosus (ICD-10) Acute neck pain ?M54.2 - Cervicalgia (ICD-10) Surgical History (Updated 03/29/23 @ 11:01 by Shaikh Jessika MD) H/O two vessel coronary artery bypass graft ?Z95.1 - Presence of aortocoronary bypass graft (ICD-10) History of tonsillectomy ?Z90.89 - Acquired absence of other organs (ICD-10) History of hernia repair ?Z98.890 - Other specified postprocedural states (ICD-10) ?Z87.19 - Personal history of other diseases of the digestive system (ICD-10) S/P femoral-popliteal bypass surgery ?Z95.828 - Presence of other vascular implants and grafts (ICD-10) Social History (Updated 05/21/23 @ 04:33 by Ashely Vizcaino RN) Within the past year, how often did you have a drink containing alcohol: 2-3 times a week Within the past year, how many standard drinks containing alcohol did you have on a typical day: 1 or 2 Within the past year, how often did you have six or more drinks on one occasion: never Total score: 0 Score interpretation: A score less than 4 is consistent with normal alcohol consumption. Smoking status: Current every day smoker Non-prescribed substance use: former substance user Non-prescribed substance use details: cocaine, meth Previous occupational history: [employer] Known occupational exposures/hazards: No Highest level of school completed/degree received: 10th grade Little interest or pleasure in doing things: not at all Feeling down, depressed, or hopeless: not at all Feel stressed/tense/nervous/anxious/difficulty sleeping: only a little Do you think of yourself as: straight/heterosexual Gender Identity: male Exam Narrative Exam Narrative: Vital signs reviewed Nurses notes noted CONST: Nontoxic, well appearing, well nourished, in no distress.? No diaphoresis.?? HENT: normocephalic, atraumatic, moist mucous membrane, no abnormalities of the nose noted, hearing normal EYES: normal appearing conjunctiva, no apparent discharge bilat NECK: normal appearance CV: normal rate, regular rhythm, no murmur. Only able to Doppler pulse right PT. Unable to obtain DP pulse. RESP: normal effort, speaking in complete sentences. Lung sounds clear and equal bilat.? No wheezes, rales, rhonchi GI: normal bowel sounds, soft, no distension, nontender : no CVA tenderness MS: + tenderness to left calf SKIN: There is a noticeable color difference between the 2 legs. However, does not appear cyanotic. There is some delay in cap refill on the left. He has 2 healing scars along the medial aspect from the thigh to the calf from his surgery. NEURO: + numbness left foot. A&Ox 3 PSYCH: normal mood, affect Constitutional Vital Signs, click to edit/add: Last Vital Signs Pulse 79 01/26/24 19:10 Resp 24 H 01/26/24 18:30 BP 138/63 01/26/24 19:00 Pulse Ox 100 01/26/24 18:30 O2 Del Method Room Air 01/26/24 14:05 Course Reevaluation(s) Reevaluation #1: Reports overall improvement in pain. Time: 16:20 Consultations Consultation #1: Patient discussed with Dr. Dacosta. Plan will be to start patient on heparin and transferred to [facility] in [place] Time: 16:33 Consultation #2: Patient discussed with Dr. Russell who will accept the patient at [facility] Time: 17:18 Vital Signs Vital signs: Vital Signs Pulse Oximetry 100 01/26/24 14:02 Pulse Rate 79 01/26/24 19:10 Respiratory Rate 24 H 01/26/24 18:30 Blood Pressure 138/63 01/26/24 19:00 Pulse Oximetry 100 01/26/24 18:30 Oxygen Delivery Method Room Air 01/26/24 14:05 Medical Decision Making MDM Narrative Medical decision making narrative: This is a pleasant 58-year-old male who presents to the emergency department with 3-day history of left calf pain. History of peripheral vascular disease, bypass. Cannot state exactly what bypass he had 12 weeks ago at [facility]. Having some associated numbness in his left foot as well. Denies any chest pain, shortness of breath. Patient has a cigarette smoker. On arrival, afebrile, vital signs are stable. On exam, nontoxic, well-appearing patient in no distress. Heart regular rate and rhythm. Lung sounds clear and equal bilaterally. There is some discoloration of between the 2 legs. No gross cyanosis, ashen color to the left leg. He may be slightly cooler than the right leg. Unable to Doppler DP pulses. Able to Doppler PT pulses. Sensory is somewhat decreased in his foot. Patient has tenderness to his calf. Labs reveal no leukocytosis, anemia, thrombocytopenia, electrolyte imbalance, renal impairment. PT, INR, APTT were 10.9, 1.03, and 30.5, respectively CT abdomen pelvis with runoffs per radiologist reveals: Complete occlusion of the left leg femoral artery and popliteal artery, with very minimal flow suspected within the calf arteries. Consulted vascular at [facility] who recommends start of heparin and transfer. Patient discussed with hospitalist who will accept No prior records from [facility] were available. Favor ischemic left leg DVT less likely history, physical, and imaging Disposition ? The patient was transferred to [facility]. Dr. Russell accepting Condition at time of disposition: stable PLEASE NOTE: Portions of the medical record may have been produced using electronic human resource manager and may contain errors with respect to translation of words which may not have been identified prior to finalization of the chart. Medical Records Medical records reviewed: Yes I reviewed the patient's medical records Lab Data Lab results reviewed: Yes I reviewed the patient's lab results Labs: Lab Results 01/26/24 Range/Units 14:11 WBC 6.7 (4.0-11.0) 10^3/uL RBC 4.24 L (4.70-6.10) 10^6/uL Hgb 12.2 L (14.0-18.0) g/dL Hct 38.4 L (42.0-54.0) % MCV 90.6 (80.0-94.0) fL MCH 28.8 (25.9-34.0) pg MCHC 31.8 (29.9-35.2) g/dL RDW 13.3 (11.0-15.0) % Plt Count 196 (150-450) 10^3/uL MPV 9.5 (9.5-13.5) fL Neut % (Auto) 73.8 (43.0-75.0) % Lymph % (Auto) 18.5 L (20.5-60.0) % [place] % (Auto) 6.7 (1.7-12.0) % Eos % (Auto) 0.4 L (0.9-7.0) % Baso % (Auto) 0.3 (0.2-2.0) % Neut # (Auto) 4.9 (1.4-6.5) 10^3/uL Lymph # (Auto) 1.2 (1.2-3.8) 10^3/uL [place] # (Auto) 0.5 (0.3-0.8) 10^3/uL Eos # (Auto) 0.0 (0.0-0.7) 10^3/uL Baso # (Auto) 0.0 (0.0-0.1) 10^3/uL Abs Immat Gran (auto) 0.02 (0.00-0.03) 10^3/uL Imm/Tot Granulo (auto) 0.3 (0.0-0.5) % PT 10.9 (9.0-11.6) sec INR 1.03 APTT 30.5 (22.3-36.2) sec Sodium 135 L (136-145) mmol/L Potassium 4.2 (3.5-5.1) mmol/L Chloride 98 (98-107) mmol/L Carbon Dioxide 30.8 (21.0-32.0) mmol/L Anion Gap 10.4 BUN 6.0 L (7.0-18.0) mg/dL Creatinine 0.72 (0.70-1.30) mg/dL Est GFR ( Amer) >60 (>=60) Est GFR (Non-Af Amer) >60 (>=60) BUN/Creatinine Ratio 8.3 Glucose 124 H (74-106) mg/dL Calcium 9.2 (8.5-10.1) mg/dL Imaging Data ct abd/pelvis with runoffs: Radiologist's impression: ITS Impressions Aorta w/Runoff CTA 01/26/24 14:09 IMPRESSION: 1. Complete occlusion of left leg femoral artery and popliteal artery, with very minimal flow suspected within calf arteries. 2. Complete occlusion of right common and external iliac arteries. There is flow within the common femoral artery and remainder of right leg secondary to collateral flow/reconstitution at level of common femoral artery. 3. A long narrow stent is present within the distal abdominal aorta with distal end lodged within the right common iliac artery of uncertain etiology or function. Correlate with expected outcome. Electronically authenticated by: DAISY BELLAMY Date: 01/26/2024 15:56 ECG Data Attestation: I personally reviewed and interpreted this ECG as follows: (Sinus rhythm at [address] elevation. Nonspecific ST changes. Normal axis.) Discharge Plan Discharge Chief Complaint: Extremity Problem, Nontraumatic Clinical Impression: Ischemia of left lower extremity, Acute pain of left lower extremity, PVD (peripheral vascular disease) Patient Disposition: [facility] Time of Disposition Decision: 17:19 Discharge Location: [facility] Condition: Fair Mode of Transportation: EMS
--- NOTE | 2024-01-26 14:21 | ECG_ITS ---
[facility] Test Date: 2024-01-26 Pat Name: CHARLES ROBERSON Department: Room: - Gender: Male [employer]: : [id number] Requested By: SHAIKH MICHELLE Order Number: [id number] Reading MD: ISABELLA WINSLOW Measurements Intervals [place] Rate: 87 P: 82 [place]: 126 QRS: 44 QRSD: 84 T: 42 QT: 370 QTc: 415 Interpretive Statements 1100 Sinus rhythm 2420 RSR (QR) in lead V1/V2, consistent with right ventricular conduction delay [address] depression 6220 Possible left atrial enlargement 9130 borderline ECG Compared to ECG 09/24/2023 11:16:58 No significant changes Electronically Signed On 01-27-2024 5:25:18 EDT by ISABELLA WINSLOW
[2024-01-26 14:30] LABS: Anion Gap 10.4; BUN Creatinine Ratio 8.3; Calcium 9.2 mg/dL (8.5-10.1); Carbon Dioxide 30.8 mmol/L (21.0-32.0); Chloride 98 mmol/L (98-107); Estimated GFR (African America >60 (>=60); Estimated GFR (Non-African Ame >60 (>=60); Glucose 124 mg/dL (74-106); Potassium 4.2 mmol/L (3.5-5.1); Sodium 135 mmol/L (136-145)
[2024-01-26] MEDS: ONDANSETRON PF 4 MG/2 ML VIAL IV (14:33)
[2024-01-26] MEDS: MORPHINE SULFATE 4 MG/ML VIAL IV (14:33)
[2024-01-26 14:43] LABS: INR 1.03; Partial Thromboplastin Time 30.5 sec (22.3-36.2); Prothrombin Time 10.9 sec (9.0-11.6)
[2024-01-26] MEDS: FENTANYL CITRATE/PF 100 MCG/2 ML VIAL IV (15:22)
[2024-01-26] MEDS: HEPARIN SODIUM (PORCINE) 5,000 UNIT/ML VIAL 5987.44 UNIT IV (17:08)
[2024-01-26] MEDS: HEPARIN SODIUM,PORCINE/D5W 25,000 UNIT/500 ML IV.SOLN 26.943 UNIT IV (17:11)
[2024-01-26] MEDS: FENTANYL CITRATE/PF 100 MCG/2 ML VIAL 50 MCG IV ×2 (17:42→20:43)
== END 2024-01-26 21:36 | disposition short-term general hospital (02) ==
PROVIDERS: Physician Assistant; Emergency Provider Emergency Medicine; PCP Internal Medicine
DX: I99.8 Other disorder of circulatory system (principal); I73.9 Peripheral vascular disease, unspecified; M79.662 Pain in left lower leg; F17.200 Nicotine dependence, unspecified, uncomplicated; Z95.828 Presence of other vascular implants and grafts
CPT/HCPCS: 36415; 75635; 80048; 85025; 85610; 85730; 93005; 96365; 96366; 96375; 96376; 99285; J1644; J2270; J2405; J3010; Q9967